=== PATIENT | female | born 1985 | race Caucasian/White ===

== ENCOUNTER 2022-11-22 16:00 | Outpatient (REF) | payer MEDICAID, SELFPAY ==
--- NOTE | 2022-11-22 11:00 | PAPFT_PTH ---
PATIENT: Lizabeth TRIPATHI LOC: [facility] U#:[id number] AGE/SX: 36/F ROOM: RE11/22/[address]: Velia Saul CNM : 1985 BED: DIS: 11/22/2022 SPEC #: [id number] RECD: 11/22/22 18:36 STATUS: MARTIN REQ #: [id number] JOSE RAFAEL: 11/22/22 11:[address]: Velia Saul DEPT: [facility] Cytology RECD BY: Tamiko Babb ENTERED: 11/22/22 18:36 SP TYPE: PAPFT OTHR DR: Unknown,Unknown Tissues: 1 - CX/ENDOCX FOR PAP SMEARS Procedures: PAP THIN PREP/UVM Screening Comments: [id number] (CHLAMYDIA/GC)
[2022-11-22 18:03] LABS: *AMPHETAMINES SCREEN URINE Negative (Negative); *BARBITURATES SCREEN URINE Negative (Negative); *BENZODIAZEPINES SCREEN URINE Negative (Negative); Cannabinoids THC Negative (Negative); Cocaine Screen,Urine Negative (Negative); METHADONE URINE SCREEN Negative (Negative); OPIATES URINE SCREEN Negative (Negative)
[2022-11-22 18:04] LABS: Tricyclic Antidepressants Negative (Negative)
[2022-11-23 12:58] LABS: Chlamydia Result Negative (Negative); GC Result Negative (Negative)
[2022-11-29 13:17] LABS: Buprenorphine Negative ng/mL (Cutoff: 5.0); Norbuprenorphine Negative ng/mL (Cutoff: 2.5)
== END 2022-11-22 16:01 | disposition home or self-care (01) ==
LOC: LBN 16:00
PROVIDERS: Visit Provider Advanced Practice Midwife
DX: Z34.91 Encounter for supervision of normal pregnancy, unspecified, first trimester (principal)
CPT/HCPCS: 80307; 80348; 87491; 87591; 88142; 87086

== ENCOUNTER 2022-11-22 20:25 | Outpatient (CLI) | payer MEDICAID, SELFPAY ==
[2022-11-22 15:55] LABS: Abs Immature Grans 0.07 10^3/uL (0.0-0.06); Absolute Basophil Count 0.05 10^3/uL (0.0-0.2); Absolute Eosinophil Count 0.06 10^3/uL (0.0-0.7); Absolute Lymphocyte Count 1.57 10^3/uL (1.2-3.4); Absolute Neutrophil Count 9.73 10^3/uL (1.2-6.7); Basophils % 0.4; Eosinophils % 0.5; HCT 38.3 % (36.0-46.0); HGB 12.8 g/dL (11.2-15.7); Immature Grans % 0.6; MCH 30.1 pg (27.0-33.0); MCHC 33.4 % (32.0-36.0); MCV 90 fL (80-95); MPV 10.5 fL (8.0-11.0); Monocytes % 4.7; Neutrophils % 80.8; Platelet Count 326 10^3/uL (130-400); RBC 4.25 10^6/uL (3.93-5.22); RDW 12.5 % (11.7-14.6); WBC 12.04 10^3/uL (4.4-10.8)
[2022-11-22 16:01] LABS: Absolute Monocyte Count 0.57 10^3/uL (0.1-0.8)
[2022-11-25 10:07] LABS: HIV-1/2 Ag & Ab Screen Negative (Negative)
[2022-11-26 11:22] LABS: Varicella IgG Antibody Positive (See Note)
[2022-11-26 11:25] LABS: Rubella IgG Ab (UVM) Positive (See Note)
[2022-11-26 15:17] LABS: Syphilis IgG w/Reflex Nonreactive (Nonreactive)
[2022-11-26 15:33] LABS: Hepatitis C Ab w Rflx HCV PCR Negative (Negative)
[2022-11-26 16:40] LABS: Hepatitis B Surface Ag Negative (Negative)
== END 2022-11-22 20:26 | disposition home or self-care (01) ==
LOC: LBO 20:25
PROVIDERS: Visit Provider Advanced Practice Midwife
DX: Z34.91 Encounter for supervision of normal pregnancy, unspecified, first trimester
CPT/HCPCS: 36415; 86787; 86803; 86850; 86900; 86901; 87340; 87389; 85025; 86762; 86780

== ENCOUNTER → 2022-12-26 00:26 | Outpatient (CLI) | payer MEDICAID, SELFPAY ==
--- NOTE | 2022-12-26 08:00 | DI.US_ITS ---
Exam(s) US OB 2-3 TRIMESTER EXAM: US OB 2-3 TRIMESTER CLINICAL HISTORY: anatomy survey @ 19 wks, Z34.91. TECHNIQUE: Transabdominal obstetrical ultrasound performed. COMPARISON: US POCUS EXAM from 11/06/2022 FINDINGS: Number of fetuses: One. position: Variable Placental grade: 1 Placental location: Posterior. No evidence of previa. BIOMETRIC DATA: BPD: 44mm = 19+ 1 weeks HC: 165mm = 19+ 1 weeks AC: 139mm = 19+ 2 weeks FL: 28mm = 18+ 5 weeks Cisterna Magna: 2.9 mm Cerebellum: 1.9 cm EFW: 271 grms 57% Composite Age: 19+ 1 weeks EDC by US: 21 May 2023 Heart Rate: 151BPM Amniotic fluid : Amount of fluid is within normal limits. ANATOMICAL SURVEY: Four-chambered heart: Unremarkable. LVOT: Unremarkable. RVOT: Unremarkable. Left-sided stomach: Unremarkable. urinary bladder: Unremarkable. Bilateral kidneys: Unremarkable. Three-vessel cord: Unremarkable. Cord insertion: Unremarkable. Posterior fossa:Unremarkable. ventricles: Unremarkable. nose: Unremarkable. lips: Unremarkable. palate: Unremarkable. spine: Unremarkable. Two arms and two legs: Unremarkable. IMPRESSION: 1. Single live intrauterine gestation with gestational age 19+ 1 weeks. 2. Normal anatomic survey. DATA REPOSITORY:
== END ==
PROVIDERS: Visit Provider Advanced Practice Midwife
DX: Z34.91 Encounter for supervision of normal pregnancy, unspecified, first trimester (principal)
CPT/HCPCS: 76805

== ENCOUNTER 2023-01-25 16:26 | Outpatient (REF) | payer MEDICAID, SELFPAY ==
[2023-01-25 17:13] LABS: COMMENT (LAB VIEW ONLY) 31.32 mg/dL; PROTEIN < 6.0 mg/dL
== END 2023-01-25 16:27 | disposition home or self-care (01) ==
LOC: LBN 16:26
PROVIDERS: Visit Provider Advanced Practice Midwife
DX: O09.512 Supervision of elderly primigravida, second trimester (principal); Z3A.23 23 weeks gestation of pregnancy
CPT/HCPCS: 82565; 84156

== ENCOUNTER 2023-02-22 16:10 | Outpatient (CLI) | payer MEDICAID, SELFPAY ==
[2023-02-22 16:14] VITALS: BP 130/70; PULSE 89; TEMP 36.8
[2023-02-22 16:21] VITALS: BP 137/77; PULSE 88; TEMP 36.8
[2023-02-22 16:47] LABS: COMMENT (LAB VIEW ONLY) 23.07 mg/dL; PROTEIN < 6.0 mg/dL
[2023-02-22 17:03] VITALS: BP 130/70; PULSE 89
== END 2023-02-22 17:09 ==
LOC: BCD 16:10 → OBS 16:11
PROVIDERS: Visit Provider Advanced Practice Midwife
DX: O13.3 Gestational [pregnancy-induced] hypertension without significant proteinuria, third trimester (principal); Z3A.27 27 weeks gestation of pregnancy
CPT/HCPCS: 59025; 82565; 84156

== ENCOUNTER 2023-02-22 16:33 | Outpatient (CLI) | payer MEDICAID, SELFPAY ==
[2023-02-22 15:10] LABS: HCT 37.5 % (36.0-46.0); HGB 12.4 g/dL (11.2-15.7); MCH 30.2 pg (27.0-33.0); MCHC 33.1 % (32.0-36.0); MCV 91 fL (80-95); MPV 9.6 fL (8.0-11.0); Platelet Count 307 10^3/uL (130-400); RBC 4.11 10^6/uL (3.93-5.22); RDW 12.6 % (11.7-14.6); RDW-SD 41.4 fL; WBC 11.37 10^3/uL (4.4-10.8)
[2023-02-22 15:53] LABS: ALT 23 U/L (14-59); AST 14 U/L (15-37); Albumin 2.7 g/dL (3.4-5.0); Alkaline Phosphatase 62 U/L (46-116); BUN 6 mg/dL (7-18); Bilirubin, Total 0.2 mg/dL (0.2-1.0); CREATININE 0.5 mg/dL (0.55-1.02); Calcium 9.3 mg/dL (8.5-10.1); Chloride 105 mmol/L (98-107); Estimated GFR 123.81 (mL/min/1.73m2); Glucose 82 mg/dL (74-106); Sodium 137 mmol/L (136-145)
--- NOTE | 2023-02-23 07:21 | W.OBNST ---
Date of service: 02/23/23 Time of Service: 07:22 NST Evaluation Reason for NST Reasons for Nonstress Test: GESTATIONAL HYPERTENSION Gestational Age Gestational Age in Weeks and Days: 27 Weeks and 3Days Test and Monitor Explained Test/Monitor Explained: Test Explained, Monitor Explained and Patient Verbalized Understanding Vital Signs Blood Pressure: 130/70 Urine Results Urine Protein: Negative Urine Ketones: Negative Urine Glucose: Negative Urine Blood: Negative NST Information Date on Monitor: 02/22/23 Time on Monitor: 16:00 Date off Monitor: 02/22/23 Time off Monitor: 17:00 Total Time on Monitor: 60 NST Interventions: PO Hydration Contraction Frequency: 0 NST Evaluation Patient States Movement: Present FHR Baseline: 150 Variability: Moderate 6-25 bpm Accelerations: 10x10 Decelerations: None NST Results: Reactive Note Ultrasound Done: N/A. NST Note Note: Normotensive in BC x2 Labs nml pt asymptomatic Reviewed with Dr. Dominguez, pt to discharge to home BP check in 1 week NST Reviewed and Verified by: Velia Saul
[2023-02-23 07:25] VITALS: BP 130/70
== END 2023-02-22 16:34 | disposition home or self-care (01) ==
LOC: LBO 16:34
PROVIDERS: Advanced Practice Midwife; Visit Provider Advanced Practice Midwife
DX: Z34.92 Encounter for supervision of normal pregnancy, unspecified, second trimester (principal)
CPT/HCPCS: 36415; 80053; 85027

== ENCOUNTER 2023-03-08 14:39 | Outpatient (CLI) | payer MEDICAID, SELFPAY ==
[2023-03-08 14:47] VITALS: BP 138/92; PULSE 85; TEMP 36.9
[2023-03-08 14:52] VITALS: BP 138/92; PULSE 85
[2023-03-08 15:05] LABS: HCT 38.7 % (36.0-46.0); HGB 13.2 g/dL (11.2-15.7); MCH 30.5 pg (27.0-33.0); MCHC 34.1 % (32.0-36.0); MCV 89 fL (80-95); MPV 9.8 fL (8.0-11.0); Platelet Count 284 10^3/uL (130-400); RBC 4.33 10^6/uL (3.93-5.22); RDW 12.2 % (11.7-14.6); RDW-SD 40.3 fL; WBC 10.83 10^3/uL (4.4-10.8)
[2023-03-08 15:12] VITALS: BP 129/80; PULSE 80
[2023-03-08 15:20] LABS: ALT 18 U/L (14-59); AST 16 U/L (15-37); Albumin 2.7 g/dL (3.4-5.0); Alkaline Phosphatase 68 U/L (46-116); BUN 9 mg/dL (7-18); Bilirubin, Total 0.3 mg/dL (0.2-1.0); CREATININE 0.5 mg/dL (0.55-1.02); Calcium 9.5 mg/dL (8.5-10.1); Chloride 104 mmol/L (98-107); Estimated GFR 123.81 (mL/min/1.73m2); Glucose 80 mg/dL (74-106); Potassium 3.7 mmol/L (3.5-5.1); Sodium 134 mmol/L (136-145); Total Protein 7.3 g/dL (6.4-8.2); Uric Acid 3.5 mg/dL (2.6-6.0)
[2023-03-08 15:29] VITALS: BP 135/76; PULSE 76
[2023-03-08 15:31] LABS: PROTEIN < 6.0 mg/dL
[2023-03-08 16:56] VITALS: BP 138/92; PULSE 85; TEMP 36.9
--- NOTE | 2023-03-08 16:56 | W.OBNST ---
Date of service: 03/08/23 Time of Service: 16:56 NST Evaluation Reason for NST Reasons for Nonstress Test: GESTATIONAL HYPERTENSION Gestational Age Gestational Age in Weeks and Days: 29 Weeks and 3Days Test and Monitor Explained Test/Monitor Explained: Test Explained and Monitor Explained Vital Signs Blood Pressure: 138/92 Pulse: 85 Temperature: 98.4 F Urine Results Urine Protein: Negative NST Information Date on Monitor: 03/08/23 Time on Monitor: 14:47 Date off Monitor: 03/08/23 Time off Monitor: 15:37 Total Time on Monitor: 50 NST Interventions: PO Hydration Contraction Frequency: 0 NST Evaluation Patient States Movement: Present FHR Baseline: 150 Variability: Moderate 6-25 bpm Accelerations: 15x15 Decelerations: None NST Results: Reactive Note Ultrasound Done: N/A. NST Note NST Reviewed and Verified by: Velia Saul
[2023-03-09 16:27] VITALS: BP 120/71; PULSE 96
[2023-03-11 15:24] VITALS: BP 117/78; PULSE 78
[2023-03-12 22:44] VITALS: BP 125/70; PULSE 93
== END 2023-03-08 15:45 | disposition home or self-care (01) ==
LOC: BCD 14:40 → OBS 14:44
PROVIDERS: Visit Provider Advanced Practice Midwife
DX: O13.3 Gestational [pregnancy-induced] hypertension without significant proteinuria, third trimester (principal); Z3A.29 29 weeks gestation of pregnancy
CPT/HCPCS: 80053; 85027; 59025; 82565; 84156; 84550

== ENCOUNTER 2023-03-15 04:47 | Outpatient (CLI) | payer MEDICAID, SELFPAY ==
[2023-03-15 15:42] VITALS: BP 128/77; PULSE 75; TEMP 36.8
[2023-03-15 15:46] VITALS: BP 128/77; PULSE 75
[2023-03-15 16:20] VITALS: BP 128/77; PULSE 75; TEMP 36.8
--- NOTE | 2023-03-15 16:42 | W.OBNST ---
Date of service: 03/15/23 Time of Service: 16:30 NST Evaluation Reason for NST Reasons for Nonstress Test: CHRONIC HYPERTENSION Gestational Age Gestational Age in Weeks and Days: 30 Weeks and 1Days Test and Monitor Explained Test/Monitor Explained: Test Explained Vital Signs Blood Pressure: 128/77 Pulse: 75 Temperature: 98.2 F Urine Results Urine Protein: Negative Urine Ketones: Negative Urine Glucose: Negative Urine Blood: Negative NST Information Date on Monitor: 03/15/23 Time on Monitor: 15:40 Date off Monitor: 03/15/23 Time off Monitor: 16:11 Total Time on Monitor: 31 NST Interventions: None NST Evaluation Patient States Movement: Present FHR Baseline: 145 Variability: Moderate 6-25 bpm Accelerations: 10x10 Decelerations: None NST Results: Reactive Note Ultrasound Done: N/A. NST Note Note: NST is reactive and reassuring. will return in 1 week. IDANIA NST Reviewed and Verified by: Olamide Corona
[2023-03-15 16:43] VITALS: BP 128/77; PULSE 75; TEMP 36.8
== END 2023-03-15 16:38 ==
LOC: BCD 04:48 → OBS 15:07
PROVIDERS: Visit Provider Advanced Practice Midwife
DX: O13.3 Gestational [pregnancy-induced] hypertension without significant proteinuria, third trimester (principal); Z3A.30 30 weeks gestation of pregnancy
CPT/HCPCS: 59025

== ENCOUNTER 2023-03-22 08:44 | Outpatient (CLI) | payer MEDICAID, SELFPAY ==
[2023-03-22 15:10] VITALS: BP 114/67; PULSE 74; TEMP 36.6
[2023-03-22 15:21] VITALS: BP 114/67; PULSE 74
--- NOTE | 2023-03-22 19:20 | W.OBNST ---
Date of service: 03/22/23 Time of Service: 16:00 NST Evaluation Reason for NST Reasons for Nonstress Test: CHRONIC HYPERTENSION Gestational Age Gestational Age in Weeks and Days: 31 Weeks and 1Days Test and Monitor Explained Test/Monitor Explained: Test Explained Vital Signs Blood Pressure: 114/67 Pulse: 74 Temperature: 97.9 F Urine Results Urine Protein: Negative Urine Ketones: Negative Urine Glucose: Negative Urine Blood: Negative NST Information Date on Monitor: 03/22/23 Time on Monitor: 15:09 Date off Monitor: 03/22/23 Time off Monitor: 15:59 Total Time on Monitor: 50 NST Interventions: PO Hydration NST Evaluation Patient States Movement: Present FHR Baseline: 145 Variability: Moderate 6-25 bpm Accelerations: 15x15 Decelerations: None NST Results: Reactive Note Ultrasound Done: N/A. NST Note NST Reviewed and Verified by: Velia Saul
[2023-03-22 19:21] VITALS: BP 114/67; PULSE 74; TEMP 36.6
== END 2023-03-22 16:00 | disposition home or self-care (01) ==
LOC: BCD 08:44 → OBS 15:05
PROVIDERS: Visit Provider Advanced Practice Midwife
DX: O13.3 Gestational [pregnancy-induced] hypertension without significant proteinuria, third trimester (principal); Z3A.31 31 weeks gestation of pregnancy
CPT/HCPCS: 59025

== ENCOUNTER 2023-03-29 05:47 | Outpatient (CLI) | payer MEDICAID, SELFPAY ==
[2023-03-29 15:32] VITALS: BP 137/82; PULSE 82
[2023-03-29 15:33] VITALS: BP 137/82; PULSE 82; RESP 16; TEMP 36.8
[2023-03-29 16:02] VITALS: BP 137/82; PULSE 82
--- NOTE | 2023-03-29 17:17 | W.OBNST ---
Date of service: 03/29/23 Time of Service: 17:18 NST Evaluation Reason for NST Reasons for Nonstress Test: CHRONIC HYPERTENSION Gestational Age Gestational Age in Weeks and Days: 32 Weeks and 1Days Test and Monitor Explained Test/Monitor Explained: Test Explained, Monitor Explained and Patient Verbalized Understanding Vital Signs Blood Pressure: 137/82 Pulse: 82 NST Information Date on Monitor: 03/29/23 Time on Monitor: 15:31 Date off Monitor: 03/29/23 Time off Monitor: 16:02 Total Time on Monitor: 31 NST Interventions: None NST Evaluation Patient States Movement: Present FHR Baseline: 140 Variability: Moderate 6-25 bpm Accelerations: 15x15 Decelerations: None NST Results: Reactive Note Ultrasound Done: N/A. NST Note Note: Weekly NST due to chronic hypertension. reactive NST, Return to center in 1 week. NST Reviewed and Verified by: Olamide Simons
[2023-03-29 17:19] VITALS: BP 137/82; PULSE 82
== END 2023-03-29 16:10 | disposition home or self-care (01) ==
LOC: BCD 05:52 → OBS 15:26
PROVIDERS: Visit Provider Advanced Practice Midwife
DX: O13.3 Gestational [pregnancy-induced] hypertension without significant proteinuria, third trimester (principal); Z3A.32 32 weeks gestation of pregnancy
CPT/HCPCS: 59025

== ENCOUNTER → 2023-04-05 00:35 | Outpatient (CLI) | payer MEDICAID, SELFPAY ==
--- NOTE | 2023-04-05 08:30 | DI.US_ITS ---
Exam(s) US OB BRUNA WEIGHT EXAM: US OB BRUNA WEIGHT CLINICAL HISTORY: chronic hypertension affecting , O10.919. TECHNIQUE: Transabdominal obstetrical ultrasound was performed. COMPARISON: US US OB 2-3 TRIMESTER from 12/26/2022 FINDINGS: There is a single viable intrauterine gestation with cardiac activity identified-151 bpm The fetus is presently in cephalic position . Amniotic fluid: There is a normal amount of amniotic fluid with an BRUNA of 18.40cm. Placental location: The placenta is anterior grade 1,with no evidence of placenta previa. Dating parameters place this at approximately 33 weeks and 2 days gestational age, implying TEENA of 05/22/2023. BPD measures 33 weeks and 0 days HC measures 34 weeks and 3 days AC measures 32 weeks and 3 days FL measures 33 weeks and 1 day Estimated weight is 2085 gm-4 pounds, 10 ounces Fetus is at the 35th percentile on the Hadlock scale. IMPRESSION:: Viable 3rd trimester gestation, as described above. DATA REPOSITORY:
== END ==
PROVIDERS: Visit Provider Advanced Practice Midwife
DX: O10.913 Unspecified pre-existing hypertension complicating pregnancy, third trimester (principal); Z3A.33 33 weeks gestation of pregnancy
CPT/HCPCS: 76816

== ENCOUNTER 2023-04-05 07:12 | Outpatient (CLI) | payer MEDICAID, SELFPAY ==
[2023-04-05 15:28] VITALS: BP 135/78; PULSE 78; TEMP 36.7
[2023-04-05 15:29] VITALS: BP 135/78; PULSE 78
--- NOTE | 2023-04-05 16:14 | W.OBNST ---
Date of service: 04/05/23 Time of Service: 16:00 NST Evaluation Reason for NST Reasons for Nonstress Test: GESTATIONAL HYPERTENSION Gestational Age Gestational Age in Weeks and Days: 33 Weeks and 2Days Test and Monitor Explained Test/Monitor Explained: Test Explained, Monitor Explained and Patient Verbalized Understanding Vital Signs Blood Pressure: 135/78 Pulse: 78 Temperature: 98.1 F NST Information Date on Monitor: 04/05/23 Time on Monitor: 15:29 Date off Monitor: 04/05/23 Time off Monitor: 16:00 Total Time on Monitor: 31 NST Interventions: None NST Evaluation Patient States Movement: Present FHR Baseline: 130 Variability: Moderate 6-25 bpm Accelerations: 15x15 Decelerations: None NST Results: Reactive Note Ultrasound Done: N/A. NST Note Note: NST is reactive and reassuring. Return in 1 week for NST and 2 weeks for visit in office. NST Reviewed and Verified by: Olamide Corona
[2023-04-05 16:15] VITALS: BP 135/78; PULSE 78; TEMP 36.7
[2023-04-05 20:02] VITALS: BP 142/74; PULSE 91
== END 2023-04-05 16:08 ==
LOC: BCD 07:13 → OBS 15:13
PROVIDERS: Visit Provider Advanced Practice Midwife
DX: O10.913 Unspecified pre-existing hypertension complicating pregnancy, third trimester (principal); Z3A.33 33 weeks gestation of pregnancy
CPT/HCPCS: 59025

== ENCOUNTER 2023-04-12 05:27 | Outpatient (CLI) | payer MEDICAID, SELFPAY ==
[2023-04-12 15:35] VITALS: BP 144/79; PULSE 77; TEMP 36.7
[2023-04-12 16:33] VITALS: BP 144/79; PULSE 77
--- NOTE | 2023-04-13 09:27 | W.OBNST ---
Date of service: 04/12/23 Time of Service: 16:00 NST Evaluation Reason for NST Reasons for Nonstress Test: CHRONIC HYPERTENSION Gestational Age Gestational Age in Weeks and Days: 34 Weeks and 1Days Test and Monitor Explained Test/Monitor Explained: Test Explained, Monitor Explained and Patient Verbalized Understanding Vital Signs Blood Pressure: 144/79 Pulse: 77 Temperature: 98.1 F Urine Results Urine Protein: Negative Urine Ketones: Negative Urine Glucose: Negative Urine Blood: Negative NST Information Date on Monitor: 04/12/23 Time on Monitor: 15:20 Date off Monitor: 04/12/23 Time off Monitor: 16:30 Total Time on Monitor: 70 NST Interventions: PO Hydration Contraction Frequency: 0 NST Evaluation Patient States Movement: Present FHR Baseline: 135 Variability: Moderate 6-25 bpm Accelerations: 15x15 Decelerations: None NST Results: Reactive Note Ultrasound Done: N/A. NST Note Note: Continue labetalol 100 mg BID Discussed increasing dose if BP rises Weekly NST, will return next Saturday Schedule ultrasound for interval growth in early April NST Reviewed and Verified by: Velia Saul
[2023-04-13 09:29] VITALS: BP 144/79; PULSE 77; TEMP 36.7
== END 2023-04-12 16:35 ==
LOC: BCD 05:29 → OBS 15:15
PROVIDERS: Visit Provider Advanced Practice Midwife
DX: O13.3 Gestational [pregnancy-induced] hypertension without significant proteinuria, third trimester (principal); Z3A.34 34 weeks gestation of pregnancy
CPT/HCPCS: 59025

== ENCOUNTER 2023-04-19 07:37 | Outpatient (CLI) | payer MEDICAID, SELFPAY ==
[2023-04-19 15:24] VITALS: BP 128/75; PULSE 80; TEMP 36.9
--- NOTE | 2023-04-19 16:07 | W.OBNST ---
Date of service: 04/19/23 Time of Service: 16:08 NST Evaluation Reason for NST Reasons for Nonstress Test: CHRONIC HYPERTENSION Gestational Age Gestational Age in Weeks and Days: 35 Weeks and 1Days Test and Monitor Explained Test/Monitor Explained: Test Explained and Monitor Explained Vital Signs Blood Pressure: 128/75 Pulse: 80 Temperature: 98.4 F Urine Results Urine Protein: Negative Urine Ketones: Negative Urine Glucose: Negative Urine Blood: Negative NST Information Date on Monitor: 04/19/23 Time on Monitor: 15:24 Date off Monitor: 04/19/23 Time off Monitor: 15:59 Total Time on Monitor: 35 NST Interventions: PO Hydration NST Evaluation Patient States Movement: Present FHR Baseline: 140 Variability: Moderate 6-25 bpm Accelerations: 15x15 Decelerations: None NST Results: Reactive Note Ultrasound Done: N/A. NST Note Note: Lizabeth is here for weekly NST. Reactive NST. Return in 1 week for visit and NST. NST Reviewed and Verified by: Olamide Simons
[2023-04-19 16:09] VITALS: BP 128/75; PULSE 80; TEMP 36.9
== END 2023-04-19 16:01 | disposition home or self-care (01) ==
LOC: BCD 07:38 → OBS 15:18
PROVIDERS: Visit Provider Advanced Practice Midwife
DX: O10.913 Unspecified pre-existing hypertension complicating pregnancy, third trimester (principal); Z3A.35 35 weeks gestation of pregnancy
CPT/HCPCS: 59025

== ENCOUNTER 2023-04-26 09:03 | Outpatient (CLI) | payer MEDICAID, SELFPAY ==
[2023-04-26 16:23] VITALS: BP 130/85; PULSE 84
[2023-04-26 16:45] VITALS: BP 130/85; PULSE 84
--- NOTE | 2023-04-26 16:46 | W.OBNST ---
Date of service: 04/26/23 Time of Service: 16:05 NST Evaluation Reason for NST Reasons for Nonstress Test: GESTATIONAL HYPERTENSION Gestational Age Gestational Age in Weeks and Days: 35 Weeks and 1Days Test and Monitor Explained Test/Monitor Explained: Test Explained and Monitor Explained Vital Signs Blood Pressure: 130/85 Pulse: 84 Urine Results Urine Protein: Negative Urine Ketones: Positive Urine Glucose: Negative Urine Blood: Negative NST Information Time on Monitor: 15:10 Date off Monitor: 04/26/23 Time off Monitor: 16:05 NST Interventions: PO Hydration and Other NST Evaluation Patient States Movement: Present FHR Baseline: 140 Variability: Moderate 6-25 bpm Accelerations: 15x15 Decelerations: None NST Results: Reactive Note Ultrasound Done: N/A. NST Note Note: NST is reactive and reassuring. NST Reviewed and Verified by: Olamide Corona
[2023-04-26 16:49] VITALS: BP 130/85; PULSE 84
== END 2023-04-26 16:10 ==
LOC: BCD 09:05 → OBS 15:15
PROVIDERS: Visit Provider Advanced Practice Midwife
DX: O13.3 Gestational [pregnancy-induced] hypertension without significant proteinuria, third trimester (principal); Z3A.35 35 weeks gestation of pregnancy
CPT/HCPCS: 59025

== ENCOUNTER 2023-04-26 15:45 | Outpatient (REF) | payer MEDICAID, SELFPAY ==
--- NOTE | 2023-04-26 16:43 | W.OBNST ---
Date of service: 04/26/23 Time of Service: 16:20 NST Evaluation Gestational Age Gestational Age in Weeks and Days: 35 Weeks and 1Days Vital Signs Blood Pressure: 135/82 Urine Results Urine Protein: Negative Urine Ketones: Positive Urine Glucose: Negative Urine Blood: Negative
== END 2023-04-26 15:46 | disposition home or self-care (01) ==
LOC: LBN 15:45
PROVIDERS: Visit Provider Advanced Practice Midwife
DX: Z34.93 Encounter for supervision of normal pregnancy, unspecified, third trimester (principal); Z36.85 Encounter for antenatal screening for Streptococcus B; Z3A.36 36 weeks gestation of pregnancy
CPT/HCPCS: 87081

== ENCOUNTER → 2023-05-01 02:08 | Outpatient (CLI) | payer MEDICAID, SELFPAY ==
--- NOTE | 2023-05-01 08:15 | DI.US_ITS ---
Exam(s) US OB BRUNA WEIGHT EXAM: US OB BRUNA WEIGHT CLINICAL HISTORY: interval growth,chronic hypertension,O10.919. TECHNIQUE: Transabdominal obstetrical ultrasound performed. COMPARISON: US US OB 2-3 TRIMESTER from 12/26/2022 US US OB BRUNA WEIGHT from 04/05/2023 FINDINGS:: Number of fetuses: One. position: Vertex. Placental location: Fundal and anterior no evidence of previa. BIOMETRIC DATA: BPD: 89mm = 36+ 1 weeks HC: 327mm = 37+ 1 weeks AC: 331mm = 37+ 0 weeks FL: 72 mm = 36+ 6 weeks EFW: 3053 Gms = 56% Composite Age: 36+ 6 weeks TEENA: 23 May 2023 Heart Rate: 143BPM Amniotic fluid: Amount of fluid is visually within normal limits. IMPRESSION: size and weight are within the expected range. DATA REPOSITORY:
== END ==
PROVIDERS: Visit Provider Advanced Practice Midwife
DX: O10.919 Unspecified pre-existing hypertension complicating pregnancy, unspecified trimester (principal); Z3A.36 36 weeks gestation of pregnancy
CPT/HCPCS: 76816

== ENCOUNTER 2023-05-01 16:14 | Outpatient (CLI) | payer MEDICAID, SELFPAY ==
[2023-05-01 16:33] VITALS: BP 124/69; PULSE 89; TEMP 36.9
[2023-05-01 16:36] VITALS: BP 124/69; PULSE 89
--- NOTE | 2023-05-01 19:50 | W.OBNST ---
Date of service: 05/01/23 Time of Service: 19:50 NST Evaluation Reason for NST Reasons for Nonstress Test: GESTATIONAL HYPERTENSION Gestational Age Gestational Age in Weeks and Days: 36 Weeks and 6Days Test and Monitor Explained Test/Monitor Explained: Test Explained, Monitor Explained and Patient Verbalized Understanding Vital Signs Blood Pressure: 124/69 Pulse: 89 Temperature: 98.4 F Urine Results Urine Protein: Negative Urine Ketones: Negative Urine Glucose: Negative Urine Blood: Negative NST Information Date on Monitor: 05/01/23 Time on Monitor: 16:26 Date off Monitor: 05/01/23 Time off Monitor: 16:51 Total Time on Monitor: 25 NST Evaluation Patient States Movement: Present FHR Baseline: 145 Variability: Moderate 6-25 bpm Accelerations: 15x15 Decelerations: None NST Results: Reactive Note Ultrasound Done: N/A. NST Note Note: NST for hypertension. US today for growth and BRUNA was WNL. RTO 1 week for NST and visit NST Reviewed and Verified by: Olamide Simons
[2023-05-01 19:51] VITALS: BP 124/69; PULSE 89; TEMP 36.9
== END 2023-05-01 16:55 | disposition home or self-care (01) ==
LOC: BCD 16:18 → OBS 16:20
PROVIDERS: Visit Provider Advanced Practice Midwife
DX: O13.3 Gestational [pregnancy-induced] hypertension without significant proteinuria, third trimester (principal); Z3A.36 36 weeks gestation of pregnancy
CPT/HCPCS: 59025

== ENCOUNTER 2023-05-10 15:15 | Outpatient (CLI) | payer MEDICAID, SELFPAY ==
[2023-05-10 15:25] VITALS: BP 130/88; PULSE 88; TEMP 36.8
[2023-05-10 15:27] VITALS: BP 130/88; PULSE 88
[2023-05-10 15:50] VITALS: BP 132/85; PULSE 76
[2023-05-10 16:13] LABS: HCT 38.2 % (36.0-46.0); HGB 13.1 g/dL (11.2-15.7); MCH 30.5 pg (27.0-33.0); MCHC 34.3 % (32.0-36.0); MCV 89 fL (80-95); MPV 10.7 fL (8.0-11.0); Platelet Count 240 10^3/uL (130-400); RBC 4.29 10^6/uL (3.93-5.22); RDW 12.2 % (11.7-14.6); RDW-SD 39.8 fL; WBC 9.88 10^3/uL (4.4-10.8)
--- NOTE | 2023-05-10 16:20 | W.OBNST ---
Date of service: 05/10/23 Time of Service: 16:21 NST Evaluation Reason for NST Reasons for Nonstress Test: CHRONIC HYPERTENSION Gestational Age Gestational Age in Weeks and Days: 38 Weeks and 1Days Test and Monitor Explained Test/Monitor Explained: Test Explained and Monitor Explained Vital Signs Blood Pressure: 130/88 Pulse: 88 Temperature: 98.2 F Urine Results Urine Protein: Negative Urine Ketones: Negative Urine Glucose: Negative Urine Blood: Negative NST Information Date on Monitor: 05/10/23 Time on Monitor: 15:18 Date off Monitor: 05/10/23 Time off Monitor: 16:17 Total Time on Monitor: 59 NST Interventions: PO Hydration NST Evaluation Patient States Movement: Present FHR Baseline: 145 Variability: Moderate 6-25 bpm Accelerations: 15x15 Decelerations: None NST Results: Reactive Note Ultrasound Done: N/A. NST Note Note: BP recheck 132/85. preeclampsia labs drawn. RTO in 1 week for NST and visit. NST Reviewed and Verified by: Olamide Simons
[2023-05-10 16:22] VITALS: BP 130/88; PULSE 88; TEMP 36.8
[2023-05-10 16:28] LABS: ALT 30 U/L (14-59); AST 19 U/L (15-37); Albumin 2.4 g/dL (3.4-5.0); Alkaline Phosphatase 117 U/L (46-116); Anion Gap 9.5 mmol/L (3-11); BUN 6 mg/dL (7-18); Bilirubin, Total 0.3 mg/dL (0.2-1.0); CO2 18.5 mmol/L (21.0-32.0); CREATININE 0.6 mg/dL (0.55-1.02); Calcium 8.8 mg/dL (8.5-10.1); Chloride 104 mmol/L (98-107); Estimated GFR 118.49 (mL/min/1.73m2); Glucose 118 mg/dL (74-106); Potassium 3.5 mmol/L (3.5-5.1); Sodium 132 mmol/L (136-145); Total Protein 6.8 g/dL (6.4-8.2)
[2023-05-10 16:38] LABS: Uric Acid 4.6 mg/dL (2.6-6.0)
[2023-05-10 16:53] LABS: COMMENT (LAB VIEW ONLY) 72.88 mg/dL; PROTEIN 15.6 mg/dL; Prot/Crea Ur Ratio 0.21
== END 2023-05-10 16:25 | disposition home or self-care (01) ==
LOC: BCD 15:19 → OBS 15:22
PROVIDERS: Visit Provider Advanced Practice Midwife
DX: O10.013 Pre-existing essential hypertension complicating pregnancy, third trimester (principal); Z3A.38 38 weeks gestation of pregnancy
CPT/HCPCS: 80053; 85027; 59025; 82565; 84156; 84550

== ENCOUNTER 2023-05-17 08:29 | Outpatient (CLI) | payer MEDICAID, SELFPAY ==
[2023-05-17 15:19] VITALS: BP 145/86; PULSE 74; TEMP 36.8
[2023-05-17 15:30] VITALS: BP 145/86; PULSE 74
[2023-05-17 15:41] VITALS: BP 140/82; PULSE 65
--- NOTE | 2023-05-17 16:10 | W.OBNST ---
Date of service: 05/17/23 Time of Service: 16:10 NST Evaluation Reason for NST Reasons for Nonstress Test: CHRONIC HYPERTENSION Gestational Age Gestational Age in Weeks and Days: 39 Weeks and 1Days Test and Monitor Explained Test/Monitor Explained: Test Explained, Monitor Explained and Patient Verbalized Understanding Vital Signs Blood Pressure: 145/86 Pulse: 74 Temperature: 98.2 F Urine Results Urine Protein: Negative Urine Ketones: Negative Urine Glucose: Negative Urine Blood: Negative NST Information Date on Monitor: 05/17/23 Time on Monitor: 15:21 Date off Monitor: 05/17/23 Time off Monitor: 15:41 Total Time on Monitor: 20 NST Interventions: None Contraction Frequency: 0 NST Evaluation Patient States Movement: Present FHR Baseline: 130 Variability: Moderate 6-25 bpm Accelerations: 15x15 Decelerations: None NST Results: Reactive Note Ultrasound Done: N/A. NST Note Note: NST is reactive and reassuring. BP slightly elevated. Patient is taking labetalol. Declines induction today. She is hoping to get through the weekend. Agrees to come in Saturday for NST and membrane sweep and possible induction at that time. Lizabeth is aware of reasoning for induction of labor for patient on medication for BP in and has been counseled that it is recommended at 39 weeks gestation. Denies questions. Is aware of pre-eclampsia warning signs and signs of labor to notify CNM of. IDANIA NST Reviewed and Verified by: Olamide Corona
[2023-05-17 16:13] VITALS: BP 145/86; PULSE 74; TEMP 36.8
== END 2023-05-17 15:55 ==
LOC: BCD 08:30 → OBS 14:50
PROVIDERS: Visit Provider Advanced Practice Midwife
DX: O13.3 Gestational [pregnancy-induced] hypertension without significant proteinuria, third trimester (principal); Z3A.39 39 weeks gestation of pregnancy
CPT/HCPCS: 59025

== ENCOUNTER 2023-05-21 11:04 | Inpatient (IN) | payer MEDICAID, SELFPAY ==
[2023-05-21] VITALS (156 sets, daily range): BP systolic 135–138; BP diastolic 79–87; PULSE 0–116; RESP 16; TEMP 36.7–36.9
[2023-05-21 11:35] LABS: HCT 36.5 % (36.0-46.0); HGB 12.5 g/dL (11.2-15.7); MCH 30.5 pg (27.0-33.0); MCHC 34.2 % (32.0-36.0); MCV 89 fL (80-95); MPV 10.8 fL (8.0-11.0); Platelet Count 238 10^3/uL (130-400); RDW 12.2 % (11.7-14.6); RDW-SD 39.8 fL; WBC 10.73 10^3/uL (4.4-10.8)
--- NOTE | 2023-05-21 12:05 | HPE_ITS ---
Date of service: 05/21/23 Time of Service: 12:05 Assessment and Plan Assessment and plan (1) Encounter for induction of labor: Status: Acute Assessment and plan: Admit to the Center. Will start misoprostol PO per protocol and anticipate . Comfort measures discussed. Desires to use the tub when needed. IOL discussed with MD friction saw operator, Cathy Dominguez MD (2) Chronic hypertension affecting : Status: Acute Assessment and plan: will continue to monitor BP. Will continue labetalol 100 mg PO BID OB-HPI Labor/Delivery History of Present Illness Reason for Visit: NST Chief Complaint: Scheduled Induction of Labor Indication for Induction: Chronic Hypertension. TEENA Calculator Estimated Delivery Date Method Current WG Current Estimate 05/23/23 Ultrasound #1 39w 5d Other Estimates 05/30/23 LMP (Uncertain) 38w 5d Comments: Lizabeth is here for IOL due to chronic hypertension History of Present Expected Delivery Route/Plan - CNM/ for cHTN medication management FOB/ - Donna Jimenez (first child) / GBS neg Desires tub room for labor Specific Issues/Plan 1. AMA & Nullip, advised to begin low dose ASA 2. Declines all genetic screening tests after AMA counseling 3. Declines level 2 ultrasound/MFM consult at [facility], prefers scan @ [facility] 4. Dental problems (bleeding gums). Had teeth cleaning @ 21 wks. 5. Declines 28 wk 1 hr glucola, will do 2 wks of QID home testing instead: all nml 6. Isolated BP elevation noted @ 23 wks, prot/creat ratio 01/25 unable to calculate, CMP added to 28 wk lab 6a. At 27 wks labs nml, NST reactive, BP elevation noted in office, 137/77 in , recheck at next appt 6b. At 29 wks starting labetalol 100 mg PO BID, labs are nml 7. Chronic hypertension, labetalol 100 mg twice daily & close follow-up: Wkly visits w/NST. 7a. Growth ultrasound at 33 wks, EFW35% BRUNA 18.40 7b. Patient understands to anticipate labor induction after 39 weeks, before term 7c. Growth US 37 weeks - EFW 66%ile and BRUNA 11.8 cm. Assessment: History Reviewed & Current Informed Consent Informed Consent: Induction of Labor (induction methods discussed) PFSH All Active Problems (Updated 05/21/23 @ 12:08 by Olamide Simons CNM) Encounter for induction of labor (Acute) Family history of hypertension (Acute) Chronic hypertension affecting (Acute) Former smoker (Acute) Advanced maternal age (AMA) in (Acute) (Acute) Medical History (Updated 05/21/23 @ 12:08 by Olamide Simons CNM) Elevated BP without diagnosis of hypertension Social History (Updated 11/05/22 @ 14:59 by Kristen Ang NP) Smoking/Tobacco Use Status: Never Smoking risk assessment performed?: Yes Alcohol Intake: never Substance use type: does not use Housing: apartment Female Reproductive History Menstrual control method: none History History 1 Para 0 Hx # Term Pregnancies 0 Multiple births 0 Hx # Pregnancies 0 Ectopic pregnancies 0 AB induced 0 Hx Number of Living Children 0 AB spontaneous 0 Meds Allergies and Home Medications Allergies Allergy/AdvReac Type Severity Reaction Status Date / Time No Known Allergies Allergy Unverified 05/17/23 16:35 Home Medications Medication Instructions Recorded Confirmed Type vits no.126-ferrous fum tab PO DAILY 11/05/22 05/17/23 History 28 mg iron-folic acid 800 mcg tablet (Classic ) aspirin 81 mg tablet,delayed 81 mg PO DAILY #90 tabs 11/22/22 05/17/23 Rx release alcohol swabs 1 pad topical QID #100 ea 01/25/23 05/17/23 Rx blood sugar diagnostic (FreeStyle #50 ea 01/25/23 05/17/23 Rx Lite Strips) blood-glucose meter (FreeStyle #1 01/25/23 05/17/23 Rx Lite Meter kit) lancets 28 gauge (FreeStyle #100 ea 01/25/23 05/17/23 Rx Lancets) labetalol 100 mg tablet 100 mg PO BID #60 tabs 03/08/23 05/17/23 Rx Exam Physical Exam Vital signs: Temp Pulse Resp BP 98.1 F 83 16 135/87 05/21/23 11:10 05/21/23 11:10 05/21/23 11:10 05/21/23 11:10 Vital Signs Reviewed: Yes Constitutional Constitutional: no acute distress Detailed Labor and Delivery Exam Dilation: 0 Effacement (%): 0 station: -3 Cervix position: mid Consistency: soft Marvin Score: Cervical Points Exam 0 1 2 3 Dilation Closed 1-2cm 3-4 cm 5-6cm Effacement 0-30% 40-50% 60-70% 80% Consistency Firm Medium Soft Station -3 -2 -1,0 +1,+2 Position Posterior Mid Anterior MARVIN Score(Cervical Ripeness Score): 3 Amniotic Membrane Status: Intact Monitor Mode: External Contraction Frequency(min): none Contraction Intensity: Mild Fetus A Heart Rate Baseline: 140 Monitor Accelerations: 15 X 15 Monitor Decelerations: None Variability: Moderate (6-25 BPM) Presentation: Vertex Categories: Category I Chest/Brest/Axilla Exam Chest Exam: Normal Respiratory Exam Respiratory Exam: Normal Cardiovascular Exam Cardiovascular Exam: Normal Abdominal Exam Abdominal Exam: Normal Extremities Exam Extremities Exam: Normal Back/Spine/Pelvis Exam Pelvis Adequate: Yes Skin Exam Skin Exam: Normal Detailed Skin Exam Skin: Present intact; Absent rash Psychiatric Exam Psychiatric Exam: Normal Risk Assessment Risk for Shoulder Dystocia Historical/Initial OB: NEGATIVE FOR: Pelvic Abnormality, Pre- BMI>30, Previous Shoulder Dystocia or Previous Macrosomia 36 Weeks: NEGATIVE FOR: Current Gestational DM, EFW>4500gms or Maternal Weight Gain>40lbs 40 Weeks: NEGATIVE FOR: EFW> 4500 gms, Maternal Weight Gain >40lb or Post Dates Delivery Plan @ 36wks: IOL in 39th week Risk for Pre-Eclampsia Date Initiated/Initials: @ 14 wks, to begin low dose ASA. JK Yes, if one or more: NEGATIVE FOR: Hx Pre-E/Gest HTN, Chronic HTN, Multiple Gestation, Pre-gestational DM, Renal Disease, Systemic Lupus or APA Syndrome Yes, if 2 or more: POSITIVE FOR: Nulliparity and Age>= 35 yrs; NEGATIVE FOR: >10yr btwn pregnancies, BMI>30, ethinicty, Mother/Sister w/ Pre-E or Previous IUGR Risk for Post- Hemorrhage Initial: NEGATIVE FOR: Multiple Gestation, Previous PPH, Known Clotting Deficiency, Grand Multiparity or Anticoagulation 36 Weeks: NEGATIVE FOR: Anemia, hgb<10, Low platelets(thrombocytopenia), Gestational HTN or Pre-E, Polyhydraminios or EFW>4500gms 40 Weeks: POSITIVE FOR: Gestation HTN or Pre-E; NEGATIVE FOR: Anemia, hgb<10, Low platelets (thrombocytopenia), Polyhydraminios or EFW>4500gms At Risk?: Yes Risks Reviewed Risks Reviewed Upon Admission: Yes
[2023-05-21] MEDS: miSOPROStol 25 MCG TAB 50 MCG PO ×3 (12:44→20:47)
[2023-05-21] MEDS: Labetalol 100 MG TAB PO (20:08)
[2023-05-21 20:38] LABS: COMMENT (LAB VIEW ONLY) 34.93 mg/dL; PROTEIN 6.2 mg/dL; Prot/Crea Ur Ratio 0.17
[2023-05-22] VITALS (291 sets, daily range): BP systolic 118–155; BP diastolic 57–83; PULSE 0–112; RESP 16; TEMP 36.8–37.2
[2023-05-22] MEDS: miSOPROStol 50 MCG TAB ×2 (00:54→04:47)
[2023-05-22 07:03] LABS: HCT 37.8 % (36.0-46.0); HGB 12.7 g/dL (11.2-15.7); MCH 30.5 pg (27.0-33.0); MCHC 33.6 % (32.0-36.0); MCV 91 fL (80-95); MPV 10.7 fL (8.0-11.0); Platelet Count 228 10^3/uL (130-400); RBC 4.16 10^6/uL (3.93-5.22); RDW 12.3 % (11.7-14.6); WBC 9.06 10^3/uL (4.4-10.8)
[2023-05-22] MEDS: Labetalol 100 MG TAB PO ×2 (08:42→19:38)
[2023-05-22] MEDS: miSOPROStol 50 MCG TAB PO (11:01)
--- NOTE | 2023-05-22 11:40 | W.PM.OBNL1 ---
Date of service: 05/22/23 Time of Service: 10:30 Informed Consent Informed Consent: Induction of Labor (induction methods discussed) Pelvic Exam Dilation: 0.5 Effacement (%): 25 station: -2 Cervix Position: posterior Consistency: soft Vaginal Exam Presentation: Cephalic Contractions Monitor Mode: External Contraction Frequency(min): every 2-4 Contraction Duration(sec): 40-50 Intensity: Mild Fetus A Monitor: External (US) Heart Rate Baseline: 140 Presentation: Cephalic Variability: Moderate (6-25 BPM) Categories: Category I FHR Rhythm: Regular Accelerations: 15 X 15 Decelerations: None Amniotic Membrane Status: Intact Assessment and Plan Assessment and plan (1) Encounter for induction of labor: Status: Acute Assessment and plan: Discussed options for continued induction. I offered misoprostol administered with cervical ripening balloon or misoprostol alone. Lizabeth prefers misoprostol now and will consider cervical ripening balloon in 4 hours if no sign of active labor. (2) Family history of hypertension: Status: Acute Assessment and plan: Continue to assess BP Objective Temp Pulse Resp BP 98.9 F 93 H 16 143/76 H 05/22/23 00:15 05/22/23 11:39 05/22/23 00:15 05/22/23 08:38 Laboratory Results WBC 9.06 10^3/uL (4.4-10.8) 05/22/23 06:00 RBC 4.16 10^6/uL (3.93-5.22) 05/22/23 06:00 Hgb 12.7 g/dL (11.2-15.7) 05/22/23 06:00 Hct 37.8 % (36.0-46.0) 05/22/23 06:00 MCV 91 fL (80-95) 05/22/23 06:00 MCH 30.5 pg (27.0-33.0) 05/22/23 06:00 MCHC 33.6 % (32.0-36.0) 05/22/23 06:00 RDW 12.3 % (11.7-14.6) 05/22/23 06:00 Plt Count 228 10^3/uL (130-400) 05/22/23 06:00 MPV 10.7 fL (8.0-11.0) 05/22/23 06:00 Ur Random Creatinine 34.93 mg/dL 05/21/23 19:30 U Random Total Protein 6.2 mg/dL 05/21/23 19:30 U [place] Prot/Creat Ratio 0.17 05/21/23 19:30 Patient ABO/Rh O Positive 05/21/23 11:25 Antibody Screen NEGATIVE 05/21/23 11:25 Subjective Patient Reports: No new Complaints Interval history since last seen: Lizabeth slept well last night. She has received 5 doses of misoprostol. She began experiencing discomfort this morning but it has decreased. BP 143/76. Preeclampsia labs WNL. Results Hemoglobin/Hematocrit: Hgb 12.7 g/dL (11.2-15.7) 05/22/23 06:00 Hct 37.8 % (36.0-46.0) 05/22/23 06:00
--- NOTE | 2023-05-22 15:00 | PGE_ITS ---
Date of service: 05/22/23 Time of Service: 15:00 Informed Consent Informed Consent: Induction of Labor (induction methods discussed) Pelvic Exam Comments: cervical exam deferred Contractions Monitor Mode: External Contraction Frequency(min): 2-4 Contraction Duration(sec): 40-60 Intensity: Mild Fetus A Monitor: External (US) Heart Rate Baseline: 140 Presentation: Vertex Variability: Moderate (6-25 BPM) Categories: Category I Accelerations: 15 X 15 Decelerations: None Amniotic Membrane Status: Intact Assessment and Plan Assessment and plan (1) Encounter for induction of labor: Status: Acute Assessment and plan: Reviewed options of pitocin augmentation or cervical ripening balloon or both together. Lizabeth declines cervical ripening balloon. She would like to proceed with pitocin infusion at this time.Parmjit start pitocin per protocol for continued cervical ripening. Reassess after 8 hours of pitocin infusion or when appropria te. Objective Temp Pulse Resp BP 98.9 F 77 16 139/80 05/22/23 00:15 05/22/23 13:11 05/22/23 00:15 05/22/23 11:43 Laboratory Results WBC 9.06 10^3/uL (4.4-10.8) 05/22/23 06:00 RBC 4.16 10^6/uL (3.93-5.22) 05/22/23 06:00 Hgb 12.7 g/dL (11.2-15.7) 05/22/23 06:00 Hct 37.8 % (36.0-46.0) 05/22/23 06:00 MCV 91 fL (80-95) 05/22/23 06:00 MCH 30.5 pg (27.0-33.0) 05/22/23 06:00 MCHC 33.6 % (32.0-36.0) 05/22/23 06:00 RDW 12.3 % (11.7-14.6) 05/22/23 06:00 Plt Count 228 10^3/uL (130-400) 05/22/23 06:00 MPV 10.7 fL (8.0-11.0) 05/22/23 06:00 Ur Random Creatinine 34.93 mg/dL 05/21/23 19:30 U Random Total Protein 6.2 mg/dL 05/21/23 19:30 U [place] Prot/Creat Ratio 0.17 05/21/23 19:30 Patient ABO/Rh O Positive 05/21/23 11:25 Antibody Screen NEGATIVE 05/21/23 11:25 Subjective Patient Reports: No new Complaints Interval history since last seen: resting comfortably Results Hemoglobin/Hematocrit: Hgb 12.7 g/dL (11.2-15.7) 05/22/23 06:00 Hct 37.8 % (36.0-46.0) 05/22/23 06:00
[2023-05-22 15:39] LABS: ALT 34 U/L (14-59); AST 24 U/L (15-37); Albumin 2.6 g/dL (3.4-5.0); Alkaline Phosphatase 139 U/L (46-116); Anion Gap 11.4 mmol/L (3-11); BUN 6 mg/dL (7-18); Bilirubin, Total 0.2 mg/dL (0.2-1.0); CO2 21.6 mmol/L (21.0-32.0); CREATININE 0.6 mg/dL (0.55-1.02); Calcium 9.5 mg/dL (8.5-10.1); Chloride 106 mmol/L (98-107); Estimated GFR 118.49 (mL/min/1.73m2); Glucose 121 mg/dL (74-106); Potassium 3.8 mmol/L (3.5-5.1); Sodium 139 mmol/L (136-145); Total Protein 7.1 g/dL (6.4-8.2); Uric Acid 4.4 mg/dL (2.6-6.0)
[2023-05-22] MEDS: Oxytocin/Normal Saline 30 UNIT/500 ML BAG 1 UNITS IV (15:40)
[2023-05-22] MEDS: Normal Saline Flush 10 ML SYR IVP (15:41)
[2023-05-22] MEDS: Lactated Ringers 1,000 ML 125 ML IV (15:42)
[2023-05-22] MEDS: Lactated Ringers 1,000 ML 200 ML IV (22:37)
[2023-05-23] VITALS (45 sets, daily range): BP systolic 126–182; BP diastolic 60–91; PULSE 0–119; RESP 16; TEMP 36.9–37.4
[2023-05-23] MEDS: Labetalol 100 MG TAB PO ×2 (08:39→14:13)
[2023-05-23] MEDS: Normal Saline Flush 10 ML SYR IVP (08:40)
--- NOTE | 2023-05-23 09:07 | PGE_ITS ---
Date of service: 05/23/23 Time of Service: 00:30 Informed Consent Informed Consent: Induction of Labor (induction methods discussed) Pelvic Exam Comments: cervical exam deferred Contractions Monitor Mode: External Contraction Frequency(min): every 2-4 Contraction Duration(sec): 40-60 Intensity: Mild Fetus A Monitor: External (US) Heart Rate Baseline: 140 Presentation: Cephalic Variability: Moderate (6-25 BPM) Categories: Category I FHR Rhythm: Regular Accelerations: 15 X 15 Decelerations: None Amniotic Membrane Status: Intact Assessment and Plan Assessment and plan (1) Encounter for induction of labor: Status: Acute Assessment and plan: Discussed options of cervical ripening balloon and continuing pitocin, cervical ripening balloon alone or stopping induction overnight for sleep. Lizabeth prefers to stop induction until after breakfast and resume pitocin with cervical ripening balloon in the morning. She took a shower and was encouraged to rest. Will reassess in the morning. Objective Abnormal lab results 05/22/23 Range/Units 15:15 Anion Gap 11.4 H (3-11) mmol/L BUN 6 L (7-18) mg/dL Glucose 121 H (74-106) mg/dL Alkaline Phosphatase 139 H (46-116) U/L Albumin 2.6 L (3.4-5.0) g/dL Temp Pulse Resp BP 98.4 F 86 16 147/88 H 05/23/23 08:42 05/23/23 08:42 05/23/23 08:42 05/23/23 08:42 Laboratory Results WBC 9.06 10^3/uL (4.4-10.8) 05/22/23 06:00 RBC 4.16 10^6/uL (3.93-5.22) 05/22/23 06:00 Hgb 12.7 g/dL (11.2-15.7) 05/22/23 06:00 Hct 37.8 % (36.0-46.0) 05/22/23 06:00 MCV 91 fL (80-95) 05/22/23 06:00 MCH 30.5 pg (27.0-33.0) 05/22/23 06:00 MCHC 33.6 % (32.0-36.0) 05/22/23 06:00 RDW 12.3 % (11.7-14.6) 05/22/23 06:00 Plt Count 228 10^3/uL (130-400) 05/22/23 06:00 MPV 10.7 fL (8.0-11.0) 05/22/23 06:00 Sodium 139 mmol/L (136-145) 05/22/23 15:15 Potassium 3.8 mmol/L (3.5-5.1) 05/22/23 15:15 Chloride 106 mmol/L (98-107) 05/22/23 15:15 Carbon Dioxide 21.6 mmol/L (21.0-32.0) 05/22/23 15:15 Anion Gap 11.4 mmol/L (3-11) H 05/22/23 15:15 BUN 6 mg/dL (7-18) L 05/22/23 15:15 Creatinine 0.6 mg/dL (0.55-1.02) 05/22/23 15:15 Est GFR (CKD-EPI 2020) 118.49 (mL/min/1.73m2) 05/22/23 15:15 Glucose 121 mg/dL (74-106) H 05/22/23 15:15 Uric Acid 4.4 mg/dL (2.6-6.0) 05/22/23 15:15 Calcium 9.5 mg/dL (8.5-10.1) 05/22/23 15:15 Total Bilirubin 0.2 mg/dL (0.2-1.0) 05/22/23 15:15 AST 24 U/L (15-37) 05/22/23 15:15 ALT 34 U/L (14-59) 05/22/23 15:15 Alkaline Phosphatase 139 U/L (46-116) H 05/22/23 15:15 Total Protein 7.1 g/dL (6.4-8.2) 05/22/23 15:15 Albumin 2.6 g/dL (3.4-5.0) L 05/22/23 15:15 Ur Random Creatinine 34.93 mg/dL 05/21/23 19:30 U Random Total Protein 6.2 mg/dL 05/21/23 19:30 U [place] Prot/Creat Ratio 0.17 05/21/23 19:30 Patient ABO/Rh O Positive 05/21/23 11:25 Antibody Screen NEGATIVE 05/21/23 11:25 Vital Signs Reviewed: Yes Subjective Interval history since last seen: Lizabeth has been resting comfortably. Painless contractions. Pitocin is at 20 mu/min for 1 hour. Results Hemoglobin/Hematocrit: Hgb 12.7 g/dL (11.2-15.7) 05/22/23 06:00 Hct 37.8 % (36.0-46.0) 05/22/23 06:00 Abnormal Lab Findings: Abnormal Labs 05/22/23 15:15 Anion Gap 11.4 H BUN 6 L Glucose 121 H Alkaline Phosphatase 139 H Albumin 2.6 L
--- NOTE | 2023-05-23 09:11 | W.PM.OBNL1 ---
Date of service: 05/23/23 Time of Service: 11:03 Informed Consent Informed Consent: Induction of Labor (induction methods discussed) Pelvic Exam Dilation: 0.5 Effacement (%): 25 station: -3 Cervix Position: posterior Consistency: soft Vaginal Exam Presentation: Cephalic Contractions Monitor Mode: External Contraction Frequency(min): occasional Contraction Duration(sec): 40-50 Intensity: Mild Fetus A Monitor: External (US) Heart Rate Baseline: 130 Presentation: Vertex Variability: Moderate (6-25 BPM) Categories: Category I Accelerations: 15 X 15 Decelerations: None Amniotic Membrane Status: Intact Assessment and Plan Assessment and plan (1) Encounter for induction of labor: Status: Acute Assessment and plan: Will resume pitocin at 2 mu/min per protocol. Cervical ripening balloon placed. Anticipated . Provide comfort measures Objective Abnormal lab results 05/22/23 Range/Units 15:15 Anion Gap 11.4 H (3-11) mmol/L BUN 6 L (7-18) mg/dL Glucose 121 H (74-106) mg/dL Alkaline Phosphatase 139 H (46-116) U/L Albumin 2.6 L (3.4-5.0) g/dL Temp Pulse Resp BP 98.4 F 86 16 147/88 H 05/23/23 08:42 05/23/23 08:42 05/23/23 08:42 05/23/23 08:42 Laboratory Results WBC 9.06 10^3/uL (4.4-10.8) 05/22/23 06:00 RBC 4.16 10^6/uL (3.93-5.22) 05/22/23 06:00 Hgb 12.7 g/dL (11.2-15.7) 05/22/23 06:00 Hct 37.8 % (36.0-46.0) 05/22/23 06:00 MCV 91 fL (80-95) 05/22/23 06:00 MCH 30.5 pg (27.0-33.0) 05/22/23 06:00 MCHC 33.6 % (32.0-36.0) 05/22/23 06:00 RDW 12.3 % (11.7-14.6) 05/22/23 06:00 Plt Count 228 10^3/uL (130-400) 05/22/23 06:00 MPV 10.7 fL (8.0-11.0) 05/22/23 06:00 Sodium 139 mmol/L (136-145) 05/22/23 15:15 Potassium 3.8 mmol/L (3.5-5.1) 05/22/23 15:15 Chloride 106 mmol/L (98-107) 05/22/23 15:15 Carbon Dioxide 21.6 mmol/L (21.0-32.0) 05/22/23 15:15 Anion Gap 11.4 mmol/L (3-11) H 05/22/23 15:15 BUN 6 mg/dL (7-18) L 05/22/23 15:15 Creatinine 0.6 mg/dL (0.55-1.02) 05/22/23 15:15 Est GFR (CKD-EPI 2020) 118.49 (mL/min/1.73m2) 05/22/23 15:15 Glucose 121 mg/dL (74-106) H 05/22/23 15:15 Uric Acid 4.4 mg/dL (2.6-6.0) 05/22/23 15:15 Calcium 9.5 mg/dL (8.5-10.1) 05/22/23 15:15 Total Bilirubin 0.2 mg/dL (0.2-1.0) 05/22/23 15:15 AST 24 U/L (15-37) 05/22/23 15:15 ALT 34 U/L (14-59) 05/22/23 15:15 Alkaline Phosphatase 139 U/L (46-116) H 05/22/23 15:15 Total Protein 7.1 g/dL (6.4-8.2) 05/22/23 15:15 Albumin 2.6 g/dL (3.4-5.0) L 05/22/23 15:15 Ur Random Creatinine 34.93 mg/dL 05/21/23 19:30 U Random Total Protein 6.2 mg/dL 05/21/23 19:30 U [place] Prot/Creat Ratio 0.17 05/21/23 19:30 Patient ABO/Rh O Positive 05/21/23 11:25 Antibody Screen NEGATIVE 05/21/23 11:25 Subjective Patient Reports: No new Complaints Interval history since last seen: Lizabeth slept well and awoke at 0830 and had breakfast. She wishes to resume pitocin and have cervical ripening balloon inserted. Results Hemoglobin/Hematocrit: Hgb 12.7 g/dL (11.2-15.7) 05/22/23 06:00 Hct 37.8 % (36.0-46.0) 05/22/23 06:00 Abnormal Lab Findings: Abnormal Labs 05/22/23 15:15 Anion Gap 11.4 H BUN 6 L Glucose 121 H Alkaline Phosphatase 139 H Albumin 2.6 L Pocus Exam Limited OB Exam DATE OF EXAM:: 05/23/23 TIME OF EXAM:: 10:52 PROVIDER THAT PERFORMED THE STUDY: Olamide Simons IS THIS A REPEAT EXAM DURING THIS ENCOUNTER: No Type of Exam: Pelvic OB Trans Abdominal REASON FOR EXAM: other indication: presentation Exam Complete. INCIDENTAL FINDINGS: vertex presentation WW Pocus Exam Exam testing Date/Time of Exam: Date of exam: 05/23/2023 Time of exam: 11:02 am Performing Provider: Olamide Simons TEENA Calculator Estimated Delivery Date Method Current WG Current Estimate 05/23/23 Ultrasound #1 40w 0d Other Estimates 05/30/23 LMP (Uncertain) 39w 0d position Gestational age (weeks): 40 Presentation: Vertex Coding for Transabdominal exam: Complete exam
[2023-05-23] MEDS: Oxytocin/Normal Saline 30 UNIT/500 ML BAG 2 UNITS IV (10:36)
[2023-05-23] MEDS: Lactated Ringers 1,000 ML 125 ML IV ×2 (10:37→17:58)
--- NOTE | 2023-05-23 14:09 | PGE_ITS ---
Date of service: 05/23/23 Time of Service: 14:10 Informed Consent Informed Consent: Induction of Labor (induction methods discussed) Pelvic Exam Comments: balloon in place. Exam deferred Contractions Monitor Mode: External Contraction Frequency(min): every 4 min Contraction Duration(sec): 50-60 Intensity: Mild Fetus A Monitor: External (US) Heart Rate Baseline: 130 Presentation: Cephalic Variability: Moderate (6-25 BPM) Categories: Category I FHR Rhythm: Regular Accelerations: 15 X 15 Decelerations: None Amniotic Membrane Status: Intact Assessment and Plan Assessment and plan (1) Encounter for induction of labor: Status: Acute Assessment and plan: position changes for comfort and anticipate (2) Chronic hypertension affecting : Status: Acute Assessment and plan: consult with Dr Dominguez. IV labetalol 20 mg and PO 100 mg. increase PO labetalol to 200 Mg BID. preeclampsia serum labs ordered. Will continue to monitor Objective Abnormal lab results 05/22/23 Range/Units 15:15 Anion Gap 11.4 H (3-11) mmol/L BUN 6 L (7-18) mg/dL Glucose 121 H (74-106) mg/dL Alkaline Phosphatase 139 H (46-116) U/L Albumin 2.6 L (3.4-5.0) g/dL Temp Pulse Resp BP 98.4 F 68 16 165/83 H 05/23/23 13:41 05/23/23 13:53 05/23/23 13:41 05/23/23 13:53 Laboratory Results WBC 9.06 10^3/uL (4.4-10.8) 05/22/23 06:00 RBC 4.16 10^6/uL (3.93-5.22) 05/22/23 06:00 Hgb 12.7 g/dL (11.2-15.7) 05/22/23 06:00 Hct 37.8 % (36.0-46.0) 05/22/23 06:00 MCV 91 fL (80-95) 05/22/23 06:00 MCH 30.5 pg (27.0-33.0) 05/22/23 06:00 MCHC 33.6 % (32.0-36.0) 05/22/23 06:00 RDW 12.3 % (11.7-14.6) 05/22/23 06:00 Plt Count 228 10^3/uL (130-400) 05/22/23 06:00 MPV 10.7 fL (8.0-11.0) 05/22/23 06:00 Sodium 139 mmol/L (136-145) 05/22/23 15:15 Potassium 3.8 mmol/L (3.5-5.1) 05/22/23 15:15 Chloride 106 mmol/L (98-107) 05/22/23 15:15 Carbon Dioxide 21.6 mmol/L (21.0-32.0) 05/22/23 15:15 Anion Gap 11.4 mmol/L (3-11) H 05/22/23 15:15 BUN 6 mg/dL (7-18) L 05/22/23 15:15 Creatinine 0.6 mg/dL (0.55-1.02) 05/22/23 15:15 Est GFR (CKD-EPI 2020) 118.49 (mL/min/1.73m2) 05/22/23 15:15 Glucose 121 mg/dL (74-106) H 05/22/23 15:15 Uric Acid 4.4 mg/dL (2.6-6.0) 05/22/23 15:15 Calcium 9.5 mg/dL (8.5-10.1) 05/22/23 15:15 Total Bilirubin 0.2 mg/dL (0.2-1.0) 05/22/23 15:15 AST 24 U/L (15-37) 05/22/23 15:15 ALT 34 U/L (14-59) 05/22/23 15:15 Alkaline Phosphatase 139 U/L (46-116) H 05/22/23 15:15 Total Protein 7.1 g/dL (6.4-8.2) 05/22/23 15:15 Albumin 2.6 g/dL (3.4-5.0) L 05/22/23 15:15 Ur Random Creatinine 34.93 mg/dL 05/21/23 19:30 U Random Total Protein 6.2 mg/dL 05/21/23 19:30 U [place] Prot/Creat Ratio 0.17 05/21/23 19:30 Patient ABO/Rh O Positive 05/21/23 11:25 Antibody Screen NEGATIVE 05/21/23 11:25 Vital Signs Reviewed: Yes Subjective Patient Reports: New Complaints (pain with contractions) Interval history since last seen: BP elevated 140-182/77-88. Results Hemoglobin/Hematocrit: Hgb 12.7 g/dL (11.2-15.7) 05/22/23 06:00 Hct 37.8 % (36.0-46.0) 05/22/23 06:00 Abnormal Lab Findings: Abnormal Labs 05/22/23 15:15 Anion Gap 11.4 H BUN 6 L Glucose 121 H Alkaline Phosphatase 139 H Albumin 2.6 L
[2023-05-23 14:40] LABS: HCT 36.9 % (36.0-46.0); HGB 12.9 g/dL (11.2-15.7); MCH 31.1 pg (27.0-33.0); MCV 89 fL (80-95); MPV 11.1 fL (8.0-11.0); Platelet Count 243 10^3/uL (130-400); RBC 4.15 10^6/uL (3.93-5.22); RDW 12.4 % (11.7-14.6); RDW-SD 40.7 fL
[2023-05-23] MEDS: Labetalol 100 MG/20 ML VIAL 20 MG IVP (14:42)
[2023-05-23 14:58] LABS: ALT 33 U/L (14-59); AST 23 U/L (15-37); Albumin 2.6 g/dL (3.4-5.0); Alkaline Phosphatase 138 U/L (46-116); Anion Gap 11.5 mmol/L (3-11); BUN 7 mg/dL (7-18); Bilirubin, Total 0.2 mg/dL (0.2-1.0); CO2 20.5 mmol/L (21.0-32.0); CREATININE 0.5 mg/dL (0.55-1.02); Calcium 9.7 mg/dL (8.5-10.1); Chloride 104 mmol/L (98-107); Estimated GFR 123.81 (mL/min/1.73m2); Glucose 95 mg/dL (74-106); Potassium 4.2 mmol/L (3.5-5.1); Sodium 136 mmol/L (136-145); Uric Acid 4.1 mg/dL (2.6-6.0)
[2023-05-23] MEDS: Labetalol 100 MG TAB 200 MG PO (20:03)
--- NOTE | 2023-05-23 22:44 | W.PM.OBNL1 ---
Date of service: 05/23/23 Time of Service: 22:44 Informed Consent Informed Consent: Induction of Labor (induction methods discussed) Pelvic Exam Dilation: 2 Effacement (%): 50 station: -2 Cervix Position: posterior Consistency: soft Vaginal Exam Presentation: Cephalic Contractions Monitor Mode: External Contraction Frequency(min): every 2-4 Contraction Duration(sec): 50-60 Intensity: Mild Fetus A Monitor: External (US) Heart Rate Baseline: 130 Variability: Moderate (6-25 BPM) Categories: Category I FHR Rhythm: Regular Accelerations: 15 X 15 Decelerations: None Amniotic Membrane Status: Intact Assessment and Plan Assessment and plan (1) Encounter for induction of labor: Status: Acute Assessment and plan: Dari requests to have the pitocin stopped so she can take a shower and that was allowed. Will plan to apply the [place] monitor after showering and resume pitocin infusion at 10 mu /minutes and increase by 2 mu/min every 30 minutes to maintain adequate contraction pattern. Dr Dominguez was present at the Center at 1730 and aware of dari's status and plan to remove the balloon at 2230. (2) Family history of hypertension: Status: Acute Assessment and plan: BP requested after shower and will continue to assess. Objective Abnormal lab results 05/23/23 Range/Units 14:32 WBC 11.10 H (4.4-10.8) 10^3/uL MPV 11.1 H (8.0-11.0) fL Carbon Dioxide 20.5 L (21.0-32.0) mmol/L Anion Gap 11.5 H (3-11) mmol/L Creatinine 0.5 L (0.55-1.02) mg/dL Alkaline Phosphatase 138 H (46-116) U/L Albumin 2.6 L (3.4-5.0) g/dL Temp Pulse Resp BP 99.3 F 78 16 134/79 05/23/23 20:02 05/23/23 20:02 05/23/23 20:02 05/23/23 20:02 Laboratory Results WBC 11.10 10^3/uL (4.4-10.8) H 05/23/23 14:32 RBC 4.15 10^6/uL (3.93-5.22) 05/23/23 14:32 Hgb 12.9 g/dL (11.2-15.7) 05/23/23 14:32 Hct 36.9 % (36.0-46.0) 05/23/23 14:32 MCV 89 fL (80-95) 05/23/23 14:32 MCH 31.1 pg (27.0-33.0) 05/23/23 14:32 MCHC 35.0 % (32.0-36.0) 05/23/23 14:32 RDW 12.4 % (11.7-14.6) 05/23/23 14:32 Plt Count 243 10^3/uL (130-400) 05/23/23 14:32 MPV 11.1 fL (8.0-11.0) H 05/23/23 14:32 Sodium 136 mmol/L (136-145) 05/23/23 14:32 Potassium 4.2 mmol/L (3.5-5.1) 05/23/23 14:32 Chloride 104 mmol/L (98-107) 05/23/23 14:32 Carbon Dioxide 20.5 mmol/L (21.0-32.0) L 05/23/23 14:32 Anion Gap 11.5 mmol/L (3-11) H 05/23/23 14:32 BUN 7 mg/dL (7-18) 05/23/23 14:32 Creatinine 0.5 mg/dL (0.55-1.02) L 05/23/23 14:32 Est GFR (CKD-EPI 2020) 123.81 (mL/min/1.73m2) 05/23/23 14:32 Glucose 95 mg/dL (74-106) 05/23/23 14:32 Uric Acid 4.1 mg/dL (2.6-6.0) 05/23/23 14:32 Calcium 9.7 mg/dL (8.5-10.1) 05/23/23 14:32 Total Bilirubin 0.2 mg/dL (0.2-1.0) 05/23/23 14:32 AST 23 U/L (15-37) 05/23/23 14:32 ALT 33 U/L (14-59) 05/23/23 14:32 Alkaline Phosphatase 138 U/L (46-116) H 05/23/23 14:32 Total Protein 7.0 g/dL (6.4-8.2) 05/23/23 14:32 Albumin 2.6 g/dL (3.4-5.0) L 05/23/23 14:32 Ur Random Creatinine 34.93 mg/dL 05/21/23 19:30 U Random Total Protein 6.2 mg/dL 05/21/23 19:30 U [place] Prot/Creat Ratio 0.17 05/21/23 19:30 Patient ABO/Rh O Positive 05/21/23 11:25 Antibody Screen NEGATIVE 05/21/23 11:25 Subjective Patient Reports: No new Complaints Interval history since last seen: Dari had a period of stronger contractions and vomited earlier but she feels as though contractions are less strong now. She reports watery bloody show which soaked a pad. Blood-tinged mucus also reported. The cervical ripening balloon was deflated at 2230. She received labetalol 200 mg PO at 2000. BP has been 137/77 and 134/79. Pitocin has been infusing for 12 hours. Results Hemoglobin/Hematocrit: Hgb 12.9 g/dL (11.2-15.7) 05/23/23 14:32 Hct 36.9 % (36.0-46.0) 05/23/23 14:32 Abnormal Lab Findings: Abnormal Labs 05/22/23 05/23/23 15:15 14:32 WBC 11.10 H MPV 11.1 H Carbon Dioxide 20.5 L Anion Gap 11.4 H 11.5 H BUN 6 L Creatinine 0.5 L Glucose 121 H Alkaline Phosphatase 139 H 138 H Albumin 2.6 L 2.6 L
[2023-05-24] VITALS (253 sets, daily range): BP systolic 121–163; BP diastolic 64–86; PULSE 0–123
[2023-05-24] MEDS: Lactated Ringers 1,000 ML 125 ML IV (02:03)
--- NOTE | 2023-05-24 02:59 | W.PM.OBNL1 ---
Date of service: 05/24/23 Time of Service: 02:59 Informed Consent Informed Consent: Induction of Labor (induction methods discussed) Pelvic Exam Comments: cervical exam deferred. cervical mucus reported which is blood-tinged. Contractions Monitor Mode: External Contraction Frequency(min): every 2-3 minutes Contraction Duration(sec): 40-60 Intensity: Mild Fetus A Monitor: External (US) Heart Rate Baseline: 140 Variability: Moderate (6-25 BPM) Categories: Category I FHR Rhythm: Regular Accelerations: 15 X 15 Decelerations: Variable Recurrence: Episodic Amniotic Membrane Status: Intact Assessment and Plan Assessment and plan (1) Encounter for induction of labor: Status: Acute Assessment and plan: Discussed with Lizabeth the options of increasing the pitocin or stopping it for rest and resuming induction after 4 hours. She wishes to stop it and rest four to six hours and will resume induction with pitocin or misoprostol later in the morning. (2) Family history of hypertension: Status: Acute Assessment and plan: BP 121/64. Repeat BP when Lizabeth awakes or in 4 hours Objective Abnormal lab results 05/23/23 Range/Units 14:32 WBC 11.10 H (4.4-10.8) 10^3/uL MPV 11.1 H (8.0-11.0) fL Carbon Dioxide 20.5 L (21.0-32.0) mmol/L Anion Gap 11.5 H (3-11) mmol/L Creatinine 0.5 L (0.55-1.02) mg/dL Alkaline Phosphatase 138 H (46-116) U/L Albumin 2.6 L (3.4-5.0) g/dL Temp Pulse Resp BP 99.3 F 75 16 121/64 05/23/23 20:02 05/24/23 02:55 05/23/23 20:02 05/24/23 02:55 Laboratory Results WBC 11.10 10^3/uL (4.4-10.8) H 05/23/23 14:32 RBC 4.15 10^6/uL (3.93-5.22) 05/23/23 14:32 Hgb 12.9 g/dL (11.2-15.7) 05/23/23 14:32 Hct 36.9 % (36.0-46.0) 05/23/23 14:32 MCV 89 fL (80-95) 05/23/23 14:32 MCH 31.1 pg (27.0-33.0) 05/23/23 14:32 MCHC 35.0 % (32.0-36.0) 05/23/23 14:32 RDW 12.4 % (11.7-14.6) 05/23/23 14:32 Plt Count 243 10^3/uL (130-400) 05/23/23 14:32 MPV 11.1 fL (8.0-11.0) H 05/23/23 14:32 Sodium 136 mmol/L (136-145) 05/23/23 14:32 Potassium 4.2 mmol/L (3.5-5.1) 05/23/23 14:32 Chloride 104 mmol/L (98-107) 05/23/23 14:32 Carbon Dioxide 20.5 mmol/L (21.0-32.0) L 05/23/23 14:32 Anion Gap 11.5 mmol/L (3-11) H 05/23/23 14:32 BUN 7 mg/dL (7-18) 05/23/23 14:32 Creatinine 0.5 mg/dL (0.55-1.02) L 05/23/23 14:32 Est GFR (CKD-EPI 2020) 123.81 (mL/min/1.73m2) 05/23/23 14:32 Glucose 95 mg/dL (74-106) 05/23/23 14:32 Uric Acid 4.1 mg/dL (2.6-6.0) 05/23/23 14:32 Calcium 9.7 mg/dL (8.5-10.1) 05/23/23 14:32 Total Bilirubin 0.2 mg/dL (0.2-1.0) 05/23/23 14:32 AST 23 U/L (15-37) 05/23/23 14:32 ALT 33 U/L (14-59) 05/23/23 14:32 Alkaline Phosphatase 138 U/L (46-116) H 05/23/23 14:32 Total Protein 7.0 g/dL (6.4-8.2) 05/23/23 14:32 Albumin 2.6 g/dL (3.4-5.0) L 05/23/23 14:32 Ur Random Creatinine 34.93 mg/dL 05/21/23 19:30 U Random Total Protein 6.2 mg/dL 05/21/23 19:30 U [place] Prot/Creat Ratio 0.17 05/21/23 19:30 Patient ABO/Rh O Positive 05/21/23 11:25 Antibody Screen NEGATIVE 05/21/23 11:25 Subjective Patient Reports: No new Complaints Interval history since last seen: Lizabeth has been sleeping soundly for the past hour and is unaware of contractions. Results Hemoglobin/Hematocrit: Hgb 12.9 g/dL (11.2-15.7) 05/23/23 14:32 Hct 36.9 % (36.0-46.0) 05/23/23 14:32 Abnormal Lab Findings: Abnormal Labs 05/22/23 05/23/23 15:15 14:32 WBC 11.10 H MPV 11.1 H Carbon Dioxide 20.5 L Anion Gap 11.4 H 11.5 H BUN 6 L Creatinine 0.5 L Glucose 121 H Alkaline Phosphatase 139 H 138 H Albumin 2.6 L 2.6 L
[2023-05-24] MEDS: Labetalol 100 MG TAB 200 MG PO (08:35)
[2023-05-24 10:36] LABS: HCT 37.5 % (36.0-46.0); HGB 12.6 g/dL (11.2-15.7); MCH 30.4 pg (27.0-33.0); MCHC 33.6 % (32.0-36.0); MCV 91 fL (80-95); MPV 10.9 fL (8.0-11.0); Platelet Count 234 10^3/uL (130-400); RBC 4.14 10^6/uL (3.93-5.22); RDW 12.4 % (11.7-14.6); RDW-SD 40.9 fL; WBC 10.96 10^3/uL (4.4-10.8)
--- NOTE | 2023-05-24 10:43 | OBCE_ITS ---
Date of service: 05/24/23 Time of Service: 10:44 Assessment and Plan Assessment and plan (1) Encounter for induction of labor: Status: Acute Assessment and plan: I discussed the plan with the patient and her partner. We will administer Cervidil for the next 12 hours. I recommended oxytocin as the next step in rec and explained to the patient that the oxytocin itself would not cause nonreassuring heart rate but in fact would demonstrate placental insufficiency. I explained that placental insufficiency causing heart rate changes would be reason to do a delivery and if the patient showed no evidence of cervical change or active labor after a not yet specified period of time. (2) Chronic hypertension affecting : Status: Acute Assessment and plan: Will recheck labs today. Continue labetalol 200 mg twice daily (3) Advanced maternal age (AMA) in : Status: Acute History of Present Illness History of Present Illness Chief Complaint: 1 para 0 female at 40 W1D EGA induction of labor for hypertension Narrative: Patient is a 37-year-old G1, P0 female with a TEENA of 05/23/2023 who was admitted at 39 W5D EGA for induction of labor secondary to chronic hypertension. Patient first trimester blood pressure 120/78, second trimester blood pressure 135/82. patient currently takes labetalol 100 mg twice daily. course: Total weight gain: 33lbs. S=D. 05/01/23 EFW 56% with adequate fluid. Patient has been given misoprostol and had a Neely balloon catheter placed overnight in addition to anoxytocin infusion No active labor at this time. Yesterday her Labealol dose was increased to 200mg twice daily after a diastolic blood pressure was elevated to 165. Normal labs upon admission and on 05/23/2023. I was asked to introduce myself to the patient and discussed the plan of care going forward. After discussion with the patient and her partner the decision was made to place Cervidil for another attempt at cervical ripening. I explained to the patient that after cervical ripening I would recommend Oxytocin infusion. Consults Consult date: 05/24/23 Requesting physician: Velia Saul Review of Systems Narrative: Patient is a 37-year-old G1, P0 female currently at 40 W1D EGA who was admitted on 05/21/2023 for cervical ripening with the intention of induction of labor. Patient has been given misoprostol and had a Neely balloon catheter placed overnight along with oxytocin. No appreciable active labor at this time. Her blood pressure is currently treated with 100 mg of labetalol twice daily and she received 1 dose of IV labetalol yesterday when her blood pressure was elevated to----- Labs upon admission and -----on 2023 I was asked to introduce myself to the patient and discussed the plan of care going forward. Constitutional Constitutional: Reports as per HPI Comments: No headache no visual changes. Cardiovascular Cardiovascular: Reports as per HPI and Reports pedal edema (bialteral, non- pitting edema.) Respiratory Respiratory: Reports system reviewed and no additional complaints, except as documented Gastrointestinal Gastrointestinal: Denies abdominal pain and Denies vomiting Comments: No right upper quadrant pain nausea nausea and vomiting Genitourinary Comments: Membranes intact. Musculoskeletal Musculoskeletal: Reports system reviewed and no additional complaints, except as documented Integumentary/Breasts Skin/Breast: Reports system reviewed and no additional complaints, except as documented Neurologic Comments: No findings consistent with preeclampsia Psychiatric Psychiatric: Reports system reviewed and no additional complaints, except as documented Comments: Patient remains committed to vaginal delivery. FORMERLY [facility], [facility]–1983 All Active Problems (Updated 05/21/23 @ 12:08 by Olamide Simons CNM) Encounter for induction of labor (Acute) Family history of hypertension (Acute) Chronic hypertension affecting (Acute) Former smoker (Acute) Advanced maternal age (AMA) in (Acute) (Acute) Medical History (Updated 05/21/23 @ 12:08 by Olamide Smions CNM) Elevated BP without diagnosis of hypertension Social History (Updated 11/05/22 @ 14:59 by Kristen Ang NP) Smoking/Tobacco Use Status: Never Smoking risk assessment performed?: Yes Alcohol Intake: never Substance use type: does not use Housing: apartment Female Reproductive History Menstrual control method: none History History 2 1 Para 0 Hx # Term Pregnancies 0 Multiple births 0 Hx # Pregnancies 0 Ectopic pregnancies 0 AB induced 0 Hx Number of Living Children 0 AB spontaneous 0 Exam Narrative Exam Narrative: Physical exam deferred. 100% of the 15-minute visit was spent in [id number] counseling with the patient with Adelaida Saul CNM present. Const General: cooperative and no acute distress Nutritional Appearance: well nourished Orientation: alert, awake and oriented x3 Neck Neck: normal visual inspection Thyroid: thyroid normal Chest Chest: deferred Resp Effort & Inspection: normal respiratory effort Auscultation: clear to auscultation bilaterally Cardio Rate: regular rate Rhythm: regular rhythm GI Palpation: soft and no hepatosplenomegaly Other: gravid no focal tenderness Skin General skin exam: no rashes or lesions noted Psych Appearance: grossly normal Mental Status: mental status grossly normal Speech and Movement: speech and movement normal Mood: congruent mood Results Last Vital Signs Temp 99.3 F 05/23/23 20:02 Pulse 86 05/24/23 10:27 Resp 16 05/23/23 20:02 BP 139/74 05/24/23 08:39 Labs 05/24/23 10:25 05/24/23 10:25 Labs: Laboratory Results - last 24 hr 05/23/23 05/24/23 14:32 10:25 WBC 11.10 H 10.96 H RBC 4.15 4.14 Hgb 12.9 12.6 Hct 36.9 37.5 MCV 89 91 MCH 31.1 30.4 MCHC 35.0 33.6 RDW 12.4 12.4 Plt Count 243 234 MPV 11.1 H 10.9 Sodium 136 Potassium 4.2 Chloride 104 Carbon Dioxide 20.5 L Anion Gap 11.5 H BUN 7 Creatinine 0.5 L Est GFR (CKD-EPI 2020) 123.81 Glucose 95 Uric Acid 4.1 Calcium 9.7 Total Bilirubin 0.2 AST 23 ALT 33 Alkaline Phosphatase 138 H Total Protein 7.0 Albumin 2.6 L
[2023-05-24 10:50] LABS: PROTEIN < 6.0 mg/dL
[2023-05-24 10:50] LABS: ALT 31 U/L (14-59); AST 23 U/L (15-37); Albumin 2.5 g/dL (3.4-5.0); Alkaline Phosphatase 140 U/L (46-116); Anion Gap 10.8 mmol/L (3-11); BUN 6 mg/dL (7-18); Bilirubin, Total 0.3 mg/dL (0.2-1.0); CO2 23.2 mmol/L (21.0-32.0); CREATININE 0.6 mg/dL (0.55-1.02); Chloride 104 mmol/L (98-107); Estimated GFR 118.49 (mL/min/1.73m2); Glucose 155 mg/dL (74-106); Potassium 3.8 mmol/L (3.5-5.1); Sodium 138 mmol/L (136-145); Total Protein 6.8 g/dL (6.4-8.2)
[2023-05-24 10:51] LABS: COMMENT (LAB VIEW ONLY) < 13.00 mg/dL
--- NOTE | 2023-05-24 10:51 | PGE_ITS ---
Date of service: 05/24/23 Time of Service: 10:51 Informed Consent Informed Consent: Induction of Labor (pt consents to cervidil insertion today) Pelvic Exam Dilation: 2 Effacement (%): 50 station: -3 Cervix Position: posterior Consistency: soft BISHOPS Score(Cervical Ripeness Score): 4 Contractions Monitor Mode: External ([place]) Contraction Frequency(min): rare Intensity: Mild Fetus A Monitor: External (US) ([place]) Heart Rate Baseline: 135 Variability: Moderate (6-25 BPM) Categories: Category I Accelerations: 15 X 15 Decelerations: None Amniotic Membrane Status: Intact Assessment and Plan Assessment and plan (1) Encounter for induction of labor: Status: Acute Assessment and plan: A: 37 yo G1 @ 40+1 wks, cHTN controlled w/labetalol 20 mg PO BID HD#4, IOL in progress s/p 300 mcg misoprostel PO, 2 days pitocin infusion, 12 hrs cervical balloon Category 1 tracing, no labor thus far P: Dr. Espinal in to speak with pt regarding options moving forward Pt would like to try cervidil vaginal tape today Will repeat labs, nml yesterday Clear liquids after a light breakfast Comfort measures as pt desires Collaborative MD/CNM management (2) Chronic hypertension affecting : Status: Acute (3) Advanced maternal age (AMA) in : Status: Acute Objective Vital Signs Reviewed: Yes Notable Details: BP stable, pt taking labetalol 200 mcg BID PO Subjective Patient Reports: No new Complaints (mild appetite, no nausea, no abd discomforts, baby is active, small amt bloody vaginal mucous noted)
[2023-05-24] MEDS: Dinoprostone-CERVICAL 10 MG VSUPP VG (11:02)
[2023-05-24] MEDS: Normal Saline Flush 10 ML SYR IVP (13:31)
--- NOTE | 2023-05-24 16:50 | W.PM.OBNL1 ---
Date of service: 05/24/23 Time of Service: 15:30 Informed Consent Informed Consent: Induction of Labor (pt consents to cervidil insertion today) Pelvic Exam Comments: VE deferred, no change in clinical presentation. Contractions Monitor Mode: External ([place]) Contraction Frequency(min): rare Intensity: Mild Fetus A Monitor: External (US) ([place]) Heart Rate Baseline: 140 Variability: Moderate (6-25 BPM) Accelerations: 15 X 15 Decelerations: None Amniotic Membrane Status: Intact Assessment and Plan Assessment and plan (1) Encounter for induction of labor: Status: Acute Assessment and plan: A: No labor, cervidil in place. Day #4 IOL for cHTN, category 1 tracing Labetalol dose was increased yesterday to 200 mg PO BID, BP stable Discussed plan of care with pt after cervidil is removed @ 2300 Advised to pt that pitocin and AROM are recommended if no labor after cervidil Pt states she does not want to do either of these interventions, she states she will probably choose to go home in the morning if not in labor I advised this is against medical advice, AMA paperwork would be required I reviewed again the risks of HTN to mother and baby including abruption, placental insufficiency, bleeding, hemorrhage, c/s and related complications P: Continue cervidil until 2300 or onset of labor or category [address] Espinal informed of pt resistance to recommended treatment, request she meet with pt to discuss medical risks and tx options (2) Chronic hypertension affecting : Status: Acute (3) Advanced maternal age (AMA) in : Status: Acute Objective Abnormal lab results 05/24/23 Range/Units 10:25 WBC 10.96 H (4.4-10.8) 10^3/uL BUN 6 L (7-18) mg/dL Glucose 155 H (74-106) mg/dL Alkaline Phosphatase 140 H (46-116) U/L Albumin 2.5 L (3.4-5.0) g/dL Temp Pulse Resp BP 99.3 F 82 16 163/77 H 05/23/23 20:02 05/24/23 16:49 05/23/23 20:02 05/24/23 16:21 Laboratory Results WBC 10.96 10^3/uL (4.4-10.8) H 05/24/23 10:25 RBC 4.14 10^6/uL (3.93-5.22) 05/24/23 10:25 Hgb 12.6 g/dL (11.2-15.7) 05/24/23 10:25 Hct 37.5 % (36.0-46.0) 05/24/23 10:25 MCV 91 fL (80-95) 05/24/23 10:25 MCH 30.4 pg (27.0-33.0) 05/24/23 10:25 MCHC 33.6 % (32.0-36.0) 05/24/23 10:25 RDW 12.4 % (11.7-14.6) 05/24/23 10:25 Plt Count 234 10^3/uL (130-400) 05/24/23 10:25 MPV 10.9 fL (8.0-11.0) 05/24/23 10:25 Sodium 138 mmol/L (136-145) 05/24/23 10:25 Potassium 3.8 mmol/L (3.5-5.1) 05/24/23 10:25 Chloride 104 mmol/L (98-107) 05/24/23 10:25 Carbon Dioxide 23.2 mmol/L (21.0-32.0) 05/24/23 10:25 Anion Gap 10.8 mmol/L (3-11) 05/24/23 10:25 BUN 6 mg/dL (7-18) L 05/24/23 10:25 Creatinine 0.6 mg/dL (0.55-1.02) 05/24/23 10:25 Est GFR (CKD-EPI 2020) 118.49 (mL/min/1.73m2) 05/24/23 10:25 Glucose 155 mg/dL (74-106) H 05/24/23 10:25 Uric Acid 4.1 mg/dL (2.6-6.0) 05/23/23 14:32 Calcium 9.0 mg/dL (8.5-10.1) 05/24/23 10:25 Total Bilirubin 0.3 mg/dL (0.2-1.0) 05/24/23 10:25 AST 23 U/L (15-37) 05/24/23 10:25 ALT 31 U/L (14-59) 05/24/23 10:25 Alkaline Phosphatase 140 U/L (46-116) H 05/24/23 10:25 Total Protein 6.8 g/dL (6.4-8.2) 05/24/23 10:25 Albumin 2.5 g/dL (3.4-5.0) L 05/24/23 10:25 Ur Random Creatinine < 13.00 mg/dL 05/24/23 10:20 U Random Total Protein < 6.0 mg/dL 05/24/23 10:20 U [place] Prot/Creat Ratio 05/24/23 10:20 Patient ABO/Rh O Positive 05/21/23 11:25 Antibody Screen NEGATIVE 05/21/23 11:25 Vital Signs Reviewed: Yes Objective Narrative Objective Narrative: BP ranges 130's to 150 over 70's-80's Afebrile Category 1 tracing Pt is comfortable, ambulating in room Subjective Patient Reports: No new Complaints Interval history since last seen: slightly increased discomforts in lower abdomen but not very painful. Would like to shower. Cervidil was inserted at 1100. Results Additional Findings Results: CMP, CBC and urine prot/creat ratio are nml today
--- NOTE | 2023-05-24 18:17 | DSE_ITS ---
Date of service: 05/24/23 Time of Service: 18:17 DS: Diagnosis Discharge Diagnosis (1) Encounter for induction of labor: Status: Acute (2) Chronic hypertension affecting : Status: Acute (3) Advanced maternal age (AMA) in : Status: Acute Discharge Plan Disposition Patient Disposition: Against Medical Advice Condition: Stable Discharge Details Reason For Visit: Induction of labor Admit Date/Time: 05/21/23 11:04 Admit Provider: Olamide Simons Attending Provider: Olamide Simons Primary Care Provider: Unknown,Unknown Hospital Course Hospital Course: Patient is a 37-year-old G1, P0 female currently 40w1d EGA who was admitted at 39W5D EGA for induction of labor secondary to chronic hypertension. Patient first trimester blood pressure 120/78, second trimester blood pressure 135/82. patient currently takes labetalol 100 mg twice daily. course: Total weight gain: 33lbs. S=D. 05/01/23 EFW 56% with adequate fluid. Patient was administered misoprostol and had a Neely balloon catheter placed overnight in addition to receiving an Oxytocin infusion without evidence of active labor. Patient's Labealol dose was increased to 200mg twice daily after a systolic blood pressure of 165. Serial CMP and CBCs were normal. After receiving Cervidil the morning of 05/24/23 there was no evidence of contractions on external tocometer. I performed a SVE: unable to reach cervix which was posterior and JORDYN not well developed. Vertex presentation high in the pelvis. I expressed my concerns to the patient and her partner that she was not in labor and that the treatment that I would recommend would be Oxytocin infusion after completion of the Cervidil placement. She declined the Oxytocin stating that she would rather leave and wait for spontaneous labor in 2 or 3 days. The complications of preeclampsia and uncontrolled HTN were reviewed with the pt including damage to vital organs including stroke, renal and liver damage and . She accepted the risk of leaving and awaiting for labor. Signs and symptoms of preeclampsia were reviewed with the patient and she agreed to return to the hospital if she were to experience any such symptoms. Pt has a blood pressure cuff at home that she will measure her blood pressure and enough Labetalol to increase her dose to 200mg twice a day. She will return to the Center at 12noon 05/25/23 and 05/26/23. Lastly I discussed performing a primary delivery if she were to develop pre-eclampsia and was not in labor or there was non-reassuring heart rate tracing or lastly she decided against further IOL. Cashier General electronic data processing auditor and nursing house supervisor notifed of pt's signing AMA form and leaving unit with plans to return tomorrow for BP check. Home Meds and New Rx's Prescriptions: New labetalol 200 mg tablet 200 mg PO BID Qty: 30 0RF Discontinued labetalol 100 mg tablet 100 mg PO BID Qty: 60 4RF No Action Classic 28 mg iron- 800 mcg tablet PO DAILY aspirin 81 mg tablet,delayed release (DR/EC) 81 mg PO DAILY Qty: 90 4RF Rx Instructions: 1 tab daily and 2 tabs every other day (DME) blood-glucose meter [FreeStyle Lite Meter] Kit See Rx Instructions .Route Qty: 1 0RF Rx Instructions: As directed (DME) FreeStyle Lite Strips Strip See Rx Instructions .Route Qty: 50 4RF Rx Instructions: QID (DME) lancets [FreeStyle Lancets] 28 gauge misc See Rx Instructions .Route Qty: 100 4RF Rx Instructions: QID alcohol swabs Pads, Medicated 1 pad topical QID Qty: 100 3RF Discharge Instructions Additional Instructions: return to for BP check 05/25/23. [facility] to [facility] in event of signs of preeclampsia. Activity:: Activity as Tolerated Equipment/Supplies:: No Equipment Needed Diet:: As Tolerated Discharge Orders Discharge Orders: Discharge Order (Routine); Ordered 05/24/23 Ordered By: Yancy Espinal Discharge Data Discharge Date/Time-TO BE ENTERED AT DEPARTURE: 05/24/23 17:17 Discharge Comment: AMA; reports coming back 05/25/22 at 12:00 for BP c DS: Summary Time Spent with Patient providing and/or coordinating discharge services: Greater than 30 minutes Status at Discharge Functional status at discharge: independent ambulation Overall status at discharge: other (guarded.) Mental Status: mental status grossly normal Speech and Movement: speech and movement normal Mood: congruent mood Affect: normal affect Quality:SDOH Health Related Social Needs: Health related social needs inadequate housing Exam Narrative Exam Narrative: as noted on HPI Psych Mental Status: mental status grossly normal Speech and Movement: speech and movement normal Mood: congruent mood Affect: normal affect DS: Data Vitals/I&O Vitals and I&O: Vital Signs Temperature 99.3 F 05/23/23 20:02 Temperature Source Oral 05/23/23 20:02 Pulse 96 H 05/24/23 16:57 Pulse Rhythm Regular 05/24/23 15:45 Respiratory Rate 16 05/23/23 20:02 Respiratory Depth Normal 05/23/23 20:28 Blood Pressure 163/77 H 05/24/23 16:21 Blood Pressure Mean 106 05/22/23 19:47 Pain Level 0 05/21/23 11:10 Comment Provider notified. 05/23/23 13:41 Intake & Output 05/23/23 05/24/23 05/24/23 23:59 11:59 23:59 Intake Total 1142.683 / 1527.583 164.450 / 164.450 Output Total 2950 / 2950 Balance -1807.317 / -1422.417 164.450 / 164.450 Intake: IV 1142.683 / 1527.583 164.450 / 164.450 Output: Urine 2950 / 2950 Other: Urine Color Pale Yellow Yellow Urine Appearance Clear Urine Odor None Voiding Methods Toilet Data Completed and Pending Labs on day of discharge: Labs from last 24 hours 05/24/23 05/24/23 10:25 10:20 WBC 10.96 H RBC 4.14 Hgb 12.6 Hct 37.5 MCV 91 MCH 30.4 MCHC 33.6 RDW 12.4 Plt Count 234 MPV 10.9 Sodium 138 Potassium 3.8 Chloride 104 Carbon Dioxide 23.2 Anion Gap 10.8 BUN 6 L Creatinine 0.6 Est GFR (CKD-EPI 2020) 118.49 Glucose 155 H Calcium 9.0 Total Bilirubin 0.3 AST 23 ALT 31 Alkaline Phosphatase 140 H Total Protein 6.8 Albumin 2.5 L Ur Random Creatinine < 13.00 U Random Total Protein < 6.0 U [place] Prot/Creat Ratio PFSH All Active Problems (Updated 05/21/23 @ 12:08 by Olamide Simons CNM) Encounter for induction of labor (Acute) Family history of hypertension (Acute) Chronic hypertension affecting (Acute) Former smoker (Acute) Advanced maternal age (AMA) in (Acute) (Acute) Medical History (Updated 05/21/23 @ 12:08 by Olamide Simons CNM) Elevated BP without diagnosis of hypertension Social History (Updated 11/05/22 @ 14:59 by Kristen Ang NP) Smoking/Tobacco Use Status: Never Smoking risk assessment performed?: Yes Alcohol Intake: never Substance use type: does not use Housing: apartment Female Reproductive History Menstrual control method: none History History 1 Para 0 Hx # Term Pregnancies 0 Multiple births 0 Hx # Pregnancies 0 Ectopic pregnancies 0 AB induced 0 Hx Number of Living Children 0 AB spontaneous 0 Time Spent with Patient Time Spent with Patient: <45 minutes Time was spent: preparing to see the patient(eg.review tests), ordering medications,tests, procedures, referring, communicating with other health auto care center manager and counseling the patient
== END 2023-05-24 17:17 | disposition left against medical advice (07) | DRG 833 ==
LOC: OBS 11:09
PROVIDERS: Advanced Practice Midwife; Admitting Provider Advanced Practice Midwife; Visit Provider Advanced Practice Midwife
DX: Z82.49 Family history of ischemic heart disease and other diseases of the circulatory system; O10.913 Unspecified pre-existing hypertension complicating pregnancy, third trimester; Z3A.40 40 weeks gestation of pregnancy; O61.0 Failed medical induction of labor; O61.1 Failed instrumental induction of labor; O09.523 Supervision of elderly multigravida, third trimester
CPT/HCPCS: 59200; 36415; 80053; 85027; 86850; 86900; 86901; 82565; 84156; 84550; J1920; J3490

== ENCOUNTER 2023-05-25 11:52 | Outpatient (CLI) | payer MEDICAID, SELFPAY ==
[2023-05-25 12:23] VITALS: BP 139/76; PULSE 77
[2023-05-25 13:24] VITALS: BP 149/74; PULSE 68
--- NOTE | 2023-05-25 13:58 | W.OBNST ---
Date of service: 05/25/23 Time of Service: 13:58 NST Evaluation Reason for NST Reasons for Nonstress Test: CHRONIC HYPERTENSION and POSTDATES Gestational Age Gestational Age in Weeks and Days: 40 Weeks and 2Days Test and Monitor Explained Test/Monitor Explained: Test Explained, Monitor Explained and Patient Verbalized Understanding Vital Signs Blood Pressure: 149/74 NST Information Date on Monitor: 05/25/23 Time on Monitor: 12:15 Time off Monitor: 14:03 NST Interventions: None Contraction Frequency: none Comments: Initial 10min reactive NST followed spontaneous variable decel of FHR 10-15min NST Evaluation Patient States Movement: Present FHR Baseline: 145 Variability: Moderate 6-25 bpm Accelerations: 15x15 Decelerations: None NST Results: Questionable Note Ultrasound Done: Biophysical Profile Reason for Biophysical Profile: Equivocal NST and Hypertension. Provider that performed the study: Yancy Espinal Is this a repeat study?: No Amniotic Fluid: 2 Largest Vertical Pocket: 2.0 Muscle Tone: 2 Body Movements: 2 Breathing Movements: 2 NST Results: Questionable Total Biophysical Profile Score: 8 Coding for Biophysical Profile w/NST: Completed Exam. NST Note Note: I spoke with the pt and her partner and discussed the findings of variable decelerations of undetermined significance. BPP is reassuring. I recommended continued monitoring and discussion of findings ie; reactive NST . NST Reviewed and Verified by: Yancy Espinal
[2023-05-25 14:02] VITALS: BP 149/74
== END 2023-05-25 14:45 | disposition home or self-care (01) ==
LOC: BCD 11:55 → OBS 12:19
PROVIDERS: Visit Provider Obstetrics & Gynecology Gynecology
DX: O13.3 Gestational [pregnancy-induced] hypertension without significant proteinuria, third trimester (principal); O48.0 Post-term pregnancy; Z3A.40 40 weeks gestation of pregnancy
CPT/HCPCS: 59025

== ENCOUNTER 2023-05-26 09:42 | Outpatient (CLI) | payer MEDICAID, SELFPAY ==
[2023-05-26 12:40] VITALS: BP 129/66; PULSE 80
--- NOTE | 2023-05-26 13:08 | PDOC.NST_ITS ---
Date of service: 05/26/23 Time of Service: 13:09 NST Evaluation Reason for NST Reasons for Nonstress Test: CHRONIC HYPERTENSION and POSTDATES Gestational Age Gestational Age in Weeks and Days: 40 Weeks and 3Days Test and Monitor Explained Test/Monitor Explained: Test Explained, Monitor Explained and Patient Verbalized Understanding Vital Signs Blood Pressure: 129/66 NST Information Date on Monitor: 05/26/23 Time on Monitor: 12:21 Date off Monitor: 05/26/23 Time off Monitor: 13:09 Total Time on Monitor: 48 NST Interventions: PO Hydration Contraction Frequency: none Comments: Patient reports [place] earlier in the day. No contractions NST Evaluation Patient States Movement: Present FHR Baseline: 145 Variability: Moderate 6-25 bpm Accelerations: 15x15 Decelerations: None NST Results: Reactive Note Ultrasound Done: N/A. NST Note Note: Discussed timing of delivery with patient. She is accepting of delivery if she is not in labor in the next 72 hours. We discussed the risk of infection damage to surrounding structures including bleeding and restrictions after delivery. Patient will follow-up tomorrow on the center for repeat blood pressure check. NST Reviewed and Verified by: Yancy Espinal
[2023-05-26 13:11] VITALS: BP 129/66
== END 2023-05-26 13:10 | disposition home or self-care (01) ==
LOC: BCD 09:43 → OBS 12:26
PROVIDERS: Visit Provider Obstetrics & Gynecology Gynecology
DX: O13.3 Gestational [pregnancy-induced] hypertension without significant proteinuria, third trimester (principal); Z3A.40 40 weeks gestation of pregnancy; O48.0 Post-term pregnancy
CPT/HCPCS: 59025

== ENCOUNTER 2023-05-27 05:53 | Outpatient (CLI) | payer MEDICAID, SELFPAY ==
[2023-05-27 13:00] VITALS: BP 132/73; PULSE 84
[2023-05-27 14:24] VITALS: BP 132/73; PULSE 84; TEMP 36.4
--- NOTE | 2023-05-28 08:55 | W.OBNST ---
Date of service: 05/27/23 Time of Service: 15:00 NST Evaluation Reason for NST Reasons for Nonstress Test: CHRONIC HYPERTENSION Gestational Age Gestational Age in Weeks and Days: 40 Weeks and 4Days Test and Monitor Explained Test/Monitor Explained: Test Explained, Monitor Explained and Patient Verbalized Understanding Vital Signs Blood Pressure: 132/73 Pulse: 84 Temperature: 97.5 F Urine Results Urine Protein: Negative Urine Ketones: Negative Urine Glucose: Negative Urine Blood: Negative NST Information Time on Monitor: 12:47 Date off Monitor: 05/27/23 Time off Monitor: 14:00 NST Interventions: PO Hydration, Reposition Patient and Notify Provider Contraction Frequency: 0 NST Evaluation Patient States Movement: Present FHR Baseline: 145 Variability: Moderate 6-25 bpm Accelerations: 15x15 Decelerations: None NST Results: Reactive Note Ultrasound Done: N/A. NST Note Note: I met with the patient and her at today's visit for a discussion regarding the patient's actual TEENA. At the time of her intial dating u/s on 11/06/22 patient reported a LMP of approximately 08/23/2022 which gave her an EGA 10w4d and an TEENA of 05/30/23. The TV OB u/s performed on 11/07/23 dated her as 11w5d EGA with an TEENA of 05/23/23. That TEENA was the date that was used throughout her . Two other u/s performed in DI for morpholgy and the other for EFW noted her TEENA 05/22/23 or 05/23/23. The development of HTN during her resulted in plan for IOL at approximately 39w1d, based on the TEENA of 05/23/23. She was admitted to the on 05/21/23 and received cervical ripening with prostaglandin and richards balloon along with Oxytocin infusion. There was no active labor and minimal cervical change. She was discharged to home on 05/24/23 at her request and subsequent surveillance has been reassuring. The patient wishes to use the TEENA of 05/30/23 when planning the plans for repeat IOL. She feels that this TEENA better reflects her actual gestational age and she hopes that will factor in a successful IOL for chronic HTN. Pt has been compliant with Labetalol 200mg twice daily. She will present for cervical ripening at approximately 12 noon on 05/29/23. The plan is to administer cervical ripening and begin Oxytocin infusion on 05/30/23. NST Reviewed and Verified by: Yancy Espinal
[2023-05-28 08:58] VITALS: BP 132/73; PULSE 84; TEMP 36.4
== END 2023-05-27 14:30 ==
LOC: BCD 06:04 → OBS 12:55
PROVIDERS: Visit Provider Obstetrics & Gynecology
DX: O13.3 Gestational [pregnancy-induced] hypertension without significant proteinuria, third trimester (principal); Z3A.40 40 weeks gestation of pregnancy
CPT/HCPCS: 59025

== ENCOUNTER 2023-05-29 12:27 | Outpatient (CLI) | payer MEDICAID, SELFPAY ==
[2023-05-29 12:49] VITALS: BP 124/78; PULSE 79
[2023-05-29 14:23] LABS: HGB 12.7 g/dL (11.2-15.7); MCH 30.5 pg (27.0-33.0); MCHC 34.3 % (32.0-36.0); MCV 89 fL (80-95); Platelet Count 226 10^3/uL (130-400); RBC 4.17 10^6/uL (3.93-5.22); RDW 12.2 % (11.7-14.6); RDW-SD 39.1 fL; WBC 9.94 10^3/uL (4.4-10.8)
[2023-05-29 14:42] LABS: ALT 35 U/L (14-59); AST 28 U/L (15-37); Albumin 2.4 g/dL (3.4-5.0); Alkaline Phosphatase 143 U/L (46-116); Anion Gap 11.1 mmol/L (3-11); BUN 7 mg/dL (7-18); Bilirubin, Total 0.2 mg/dL (0.2-1.0); CO2 19.9 mmol/L (21.0-32.0); CREATININE 0.6 mg/dL (0.55-1.02); Calcium 9.3 mg/dL (8.5-10.1); Chloride 105 mmol/L (98-107); Estimated GFR 118.49 (mL/min/1.73m2); Glucose 108 mg/dL (74-106); Potassium 3.6 mmol/L (3.5-5.1); Sodium 136 mmol/L (136-145); Total Protein 6.8 g/dL (6.4-8.2); Uric Acid 5.2 mg/dL (2.6-6.0)
[2023-05-29 15:42] LABS: COMMENT (LAB VIEW ONLY) 46.05 mg/dL; PROTEIN 10.3 mg/dL; Prot/Crea Ur Ratio 0.22
--- NOTE | 2023-05-29 15:53 | W.OBNST ---
Date of service: 05/29/23 Time of Service: 13:00 NST Evaluation Reason for NST Reasons for Nonstress Test: CHRONIC HYPERTENSION and POSTDATES Gestational Age Gestational Age in Weeks and Days: 40 Weeks and 6Days Test and Monitor Explained Test/Monitor Explained: Test Explained, Monitor Explained and Patient Verbalized Understanding NST Information Date on Monitor: 05/29/23 Time on Monitor: 12:40 Date off Monitor: 05/29/23 Time off Monitor: 13:33 Total Time on Monitor: 53 NST Interventions: PO Hydration NST Evaluation Patient States Movement: Present FHR Baseline: 140 Variability: Moderate 6-25 bpm Accelerations: 15x15 Decelerations: None NST Results: Reactive Note Ultrasound Done: Biophysical Profile Reason for Biophysical Profile: Other (postdates). Provider that performed the study: Cathy Dominguez Is this a repeat study?: Yes Amniotic Fluid: 2 Largest Vertical Pocket: 3.0 Muscle Tone: 2 Body Movements: 2 Breathing Movements: 2 NST Results: Reactive Total Biophysical Profile Score: 10 Other Pertinent Findings: Other (BRUNA=10) Coding for Biophysical Profile w/NST: Completed Exam. NST Note Note: See record NST Reviewed and Verified by: Cathy Dominguez
== END 2023-05-29 14:45 | disposition home or self-care (01) ==
LOC: BCD 12:32 → OBS 12:35
PROVIDERS: Visit Provider Obstetrics & Gynecology
DX: O13.3 Gestational [pregnancy-induced] hypertension without significant proteinuria, third trimester (principal); O48.0 Post-term pregnancy; Z3A.40 40 weeks gestation of pregnancy
CPT/HCPCS: 80053; 85027; 86850; 86900; 86901; 59025; 82565; 84156; 84550

== ENCOUNTER 2023-05-31 15:24 | Inpatient (IN) | payer MEDICAID, SELFPAY ==
[2023-05-31] VITALS (40 sets, daily range): BP systolic 117–141; BP diastolic 65–77; PULSE 70–97; RESP 16; TEMP 36.7–37.1; O2SAT 98–100
--- NOTE | 2023-05-31 15:27 | HPE_ITS ---
Date of service: 05/31/23 Time of Service: 17:40 Assessment and Plan Assessment and plan (1) Chronic hypertension affecting : Status: Acute Assessment and plan: BPs currently stable - will monitor throughout induction and treat accordingly. (2) Encounter for induction of labor: Status: Acute Assessment and plan: After a thorough discussion with the patient she agrees to proceed with induction of labor today. We plan to use misoprostol overnight tonight and then reevaluate her cervix in the am. We discussed potential reasons for a CS and modes of anesthesia and pain management. Many questions were answered. OB-HPI Labor/Delivery History of Present Illness Reason for Visit: CHTN Chief Complaint: Scheduled Induction of Labor Indication for Induction: Chronic Hypertension and Post Date. TEENA Calculator Estimated Delivery Date Method Current WG Current Estimate 05/23/23 Ultrasound #1 41w 1d Other Estimates 05/30/23 LMP (Uncertain) 40w 1d Comments: Pt had been having intermittent ctxs yesterday but they have resolved. No bleeding or unusual discharge. Feeling good movement. History of Present Expected Delivery Route/Plan - CNM/ for [place] medication management FOB/ - Tiago Jimenez (first child) / GBS neg Desires tub room for labor Specific Issues/Plan 1. AMA & Nullip, advised to begin low dose ASA 2. Declines all genetic screening tests after AMA counseling 3. [place] 2 [place] [facility] [place] [facility] [place] 4. Dental problems (bleeding gums). Had teeth cleaning @ 21 wks. 5. Declines 28 wk 1 hr glucola, will do 2 wks of QID home testing instead: all nml 6. Isolated BP elevation noted @ 23 wks, prot/creat ratio 01/25 unable to calculate, CMP added to 28 wk lab 6a. At 27 wks labs nml, NST reactive, BP elevation noted in office, 137/77 in [place], recheck at next appt 6b. At 29 wks starting labetalol 100 mg PO BID, labs are nml 7. Chronic hypertension, labetalol 100 mg twice daily & close follow-up: Wkly visits w/NST. 7a. Growth ultrasound at 33 wks, EFW35% BRUNA 18.40 7b. Patient understands to anticipate labor induction after 39 weeks, before term 7c. Growth US 37 weeks - EFW 66%ile and BRUNA 11.8 cm. Review of Systems Constitutional Constitutional: Reports system reviewed and no additional complaints, except as documented Gastrointestinal Gastrointestinal: Denies nausea and Denies vomiting Genitourinary Genitourinary: Reports system reviewed and no additional complaints, except as documented Musculoskeletal Comments: No regular contractions PFSH All Active Problems (Updated 05/31/23 @ 17:37 by Cathy Dominguez MD) Encounter for induction of labor (Acute) Family history of hypertension (Acute) Chronic hypertension affecting (Acute) Former smoker (Acute) Advanced maternal age (AMA) in (Acute) (Acute) Social History (Updated 11/05/22 @ 14:59 by Kristen Ang NP) Smoking/Tobacco Use Status: Never Smoking risk assessment performed?: Yes Alcohol Intake: never Drug use: Never Substance use type: does not use Housing: apartment Do you feel safe at home: Yes Do you feel safe in your relationship?: Yes Female Reproductive History Menstrual control method: none History History 1 Para 0 Hx # Term Pregnancies 0 Multiple births 0 Hx # Pregnancies 0 Ectopic pregnancies 0 AB induced 0 Hx Number of Living Children 0 AB spontaneous 0 Meds Allergies and Home Medications Allergies Allergy/AdvReac Type Severity Reaction Status Date / Time No Known Allergies Allergy Unverified 05/17/23 16:35 Home Medications Medication Instructions Recorded Confirmed Type vits no.126-ferrous fum tab PO DAILY 11/05/22 05/29/23 History 28 mg iron-folic acid 800 mcg tablet (Classic ) aspirin 81 mg tablet,delayed 81 mg PO DAILY #90 tabs 11/22/22 05/29/23 Rx release alcohol swabs 1 pad topical QID #100 ea 01/25/23 05/29/23 Rx blood sugar diagnostic (FreeStyle #50 ea 01/25/23 05/29/23 Rx Lite Strips) blood-glucose meter (FreeStyle #1 ea 01/25/23 05/29/23 Rx Lite Meter kit) lancets 28 gauge (FreeStyle #100 ea 01/25/23 05/29/23 Rx Lancets) labetalol 200 mg tablet 200 mg PO BID #30 tabs 05/24/23 05/29/23 Rx Exam Physical Exam Vital signs: Pulse BP 73 130/77 05/31/23 12:54 05/31/23 12:54 Vital Signs Reviewed: Yes Detailed Labor and Delivery Exam Dilation: 2 Effacement (%): 60 station: -3 Cervix position: mid Consistency: soft Mota Score: Cervical Points Exam 0 1 2 3 Dilation Closed 1-2cm 3-4 cm 5-6cm Effacement 0-30% 40-50% 60-70% 80% Consistency Firm Medium Soft Station -3 -2 -1,0 +1,+2 Position Posterior Mid Anterior Fetus A Monitor Accelerations: 15 X 15 Monitor Decelerations: None Variability: Moderate (6-25 BPM) Categories: Category I Assessment Note: NST not originally reactive x1hr so BPP was done with 6/8 (-2 for breathing) Detailed HEENT Exam Head: Present normocephalic and atraumatic Detailed Abdominal Exam Comments: gravid, nontender Detailed Neurological Exam Neurological: Present alert, oriented X3 and CN II-XII intact DetailedPsychiatric Exam Psychiatric: Present normal affect, normal thought process and cooperative Results Results Group Beta Strep: Negative Blood Type: O+ Rubella Status: Immune Varicella Immunity: Immune Abnormal Lab Findings: Normal PEC labs 05/29/23 Risk Assessment Risk for Shoulder Dystocia Historical/Initial OB: NEGATIVE FOR: Pelvic Abnormality, Pre- BMI>30, Previous Shoulder Dystocia or Previous Macrosomia 36 Weeks: NEGATIVE FOR: Current Gestational DM, EFW>4500gms or Maternal Weight Gain>40lbs 40 Weeks: NEGATIVE FOR: EFW> 4500 gms, Maternal Weight Gain >40lb or Post Dates Delivery Plan @ 36wks: IOL in 39th week Risk for Pre-Eclampsia Date Initiated/Initials: @ 14 wks, to begin low dose ASA. JK Yes, if one or more: NEGATIVE FOR: Hx Pre-E/Gest HTN, Chronic HTN, Multiple Gestation, Pre-gestational DM, Renal Disease, Systemic Lupus or APA Syndrome Yes, if 2 or more: POSITIVE FOR: Nulliparity and Age>= 35 yrs; NEGATIVE FOR: >10yr btwn pregnancies, BMI>30, ethinicty, Mother/Sister w/ Pre-E or Previous IUGR Risk for Post- Hemorrhage Initial: NEGATIVE FOR: Multiple Gestation, Previous PPH, Known Clotting Deficiency, Grand Multiparity or Anticoagulation 36 Weeks: NEGATIVE FOR: Anemia, hgb<10, Low platelets(thrombocytopenia), Gestational HTN or Pre-E, Polyhydraminios or EFW>4500gms 40 Weeks: POSITIVE FOR: Gestation HTN or Pre-E; NEGATIVE FOR: Anemia, hgb<10, Low platelets (thrombocytopenia), Polyhydraminios or EFW>4500gms Risks Reviewed Risks Reviewed Upon Admission: Yes (PPH/retained placent)
[2023-05-31] MEDS: miSOPROStol 25 MCG TAB PO ×2 (16:05→20:12)
--- NOTE | 2023-05-31 17:09 | W.OBNST ---
Date of service: 05/31/23 Time of Service: 13:00 NST Evaluation Reason for NST Reasons for Nonstress Test: GESTATIONAL HYPERTENSION Reason for NST Other: postdates Gestational Age Gestational Age in Weeks and Days: 41 Weeks and 1Days Test and Monitor Explained Test/Monitor Explained: Test Explained and Monitor Explained Vital Signs Temperature: 98.1 F Urine Results Urine Protein: Negative Urine Ketones: Negative Urine Glucose: Negative Urine Blood: Positive NST Information Date on Monitor: 05/31/23 Time on Monitor: 12:40 NST Evaluation Patient States Movement: Present FHR Baseline: 145 Variability: Moderate 6-25 bpm Accelerations: 10x10 Decelerations: None NST Results: Questionable Note Ultrasound Done: Biophysical Profile Reason for Biophysical Profile: Non Reactive NST. Provider that performed the study: Cathy Dominguez Amniotic Fluid: 2 Muscle Tone: 2 Body Movements: 2 Breathing Movements: 0 NST Results: Questionable Total Biophysical Profile Score: 6 Coding for Biophysical Profile w/NST: Completed Exam. NST Note Note: NST initially not reactive after >1hr so BPP ordered. Soon after 2 accelerations were noted so the NST became reactive. No breathing movements seen after 35min. See admission note for details. NST Reviewed and Verified by: Cathy Dominguez
--- NOTE | 2023-05-31 19:45 | NUR.NOTE ---
Nursing Note: 1940: Call placed to Dr. Weiss regarding patient's home medication on Labetolol 200mg not being on mar, telephone order per provider to order labetolol 200mg po bid, hold if BP <120/70. Order read back to provider and confirmed.
[2023-06-01] VITALS (37 sets, daily range): BP systolic 119–153; BP diastolic 59–87; PULSE 65–139; RESP 12–16; TEMP 36.5–36.9; O2SAT 99–100
[2023-06-01] MEDS: miSOPROStol 25 MCG TAB PO ×2 (00:07→04:04)
[2023-06-01] MEDS: Labetalol 100 MG TAB 200 MG PO ×2 (08:48→20:19)
--- NOTE | 2023-06-01 09:24 | W.PM.OBNL1 ---
Date of service: 06/01/23 Time of Service: 08:45 Pelvic Exam Dilation: 2.5 Effacement (%): 60 station: -3 Cervix Position: anterior Consistency: soft Fetus A Heart Rate Baseline: 140 Variability: Moderate (6-25 BPM) Categories: Category I Accelerations: 15 X 15 Decelerations: None Assessment and Plan Assessment and plan (1) Chronic hypertension affecting : Status: Acute Assessment and plan: BPS stable - will hold labetalol for BP <120 or <80. Labs to be drawn this am. (2) Encounter for induction of labor: Status: Acute Assessment and plan: Slight cervical change s/p misoprostol x4. Will switch to pitocin augmentation. Objective Temp Pulse Resp BP Pulse Ox 98.4 F 78 12 135/87 99 06/01/23 08:40 06/01/23 08:40 06/01/23 08:40 06/01/23 08:40 05/31/23 23:43 Vital Signs Reviewed: Yes Subjective Interval history since last seen: Pt feeling a little crampy but was able to get some sleep. She received 4 doses of misoprostol. Her labetalol dose was held last night because her BP was on the low side.
[2023-06-01 09:33] LABS: HCT 38.7 % (36.0-46.0); HGB 13.2 g/dL (11.2-15.7); MCH 30.4 pg (27.0-33.0); MCHC 34.1 % (32.0-36.0); MCV 89 fL (80-95); MPV 11.3 fL (8.0-11.0); Platelet Count 232 10^3/uL (130-400); RBC 4.34 10^6/uL (3.93-5.22); RDW 12.1 % (11.7-14.6); RDW-SD 39.7 fL; WBC 8.66 10^3/uL (4.4-10.8)
[2023-06-01 09:50] LABS: ALT 35 U/L (14-59); AST 35 U/L (15-37); Albumin 2.6 g/dL (3.4-5.0); Alkaline Phosphatase 158 U/L (46-116); BUN 7 mg/dL (7-18); Bilirubin, Total 0.4 mg/dL (0.2-1.0); CREATININE 0.6 mg/dL (0.55-1.02); Calcium 8.8 mg/dL (8.5-10.1); Chloride 103 mmol/L (98-107); Estimated GFR 118.49 (mL/min/1.73m2); Glucose 83 mg/dL (74-106); Potassium 3.8 mmol/L (3.5-5.1); Sodium 135 mmol/L (136-145)
[2023-06-01] MEDS: Normal Saline Flush 10 ML SYR IVP (10:49)
[2023-06-01] MEDS: Lactated Ringers 1,000 ML 125 ML IV ×2 (10:50→18:09)
[2023-06-01] MEDS: Oxytocin/Normal Saline 30 UNIT/500 ML BAG 2 UNITS IV (10:51)
--- NOTE | 2023-06-01 18:56 | W.PM.OBNL1 ---
Date of service: 06/01/23 Time of Service: 16:00 Fetus A Heart Rate Baseline: 140 Variability: Moderate (6-25 BPM) Accelerations: 15 X 15 Decelerations: Variable (occasional) Assessment Note: Mostly category 1 with occasional cat 2 due to small variable decels Assessment and Plan Assessment and plan (1) Encounter for induction of labor: Status: Acute Assessment and plan: Continue to increase pitocin up to 30 as needed. Offered exam to pt but she declines at this point. (2) Chronic hypertension affecting : Status: Acute Assessment and plan: BP stable. Labs normal. Objective Abnormal lab results 06/01/23 Range/Units 09:25 MPV 11.3 H (8.0-11.0) fL Sodium 135 L (136-145) mmol/L Alkaline Phosphatase 158 H (46-116) U/L Albumin 2.6 L (3.4-5.0) g/dL Temp Pulse Resp BP Pulse Ox 97.7 F 69 16 135/74 99 06/01/23 17:01 06/01/23 17:01 06/01/23 17:01 06/01/23 17:01 06/01/23 17:01 Laboratory Results WBC 8.66 10^3/uL (4.4-10.8) 06/01/23 09:25 RBC 4.34 10^6/uL (3.93-5.22) 06/01/23 09:25 Hgb 13.2 g/dL (11.2-15.7) 06/01/23 09:25 Hct 38.7 % (36.0-46.0) 06/01/23 09:25 MCV 89 fL (80-95) 06/01/23 09:25 MCH 30.4 pg (27.0-33.0) 06/01/23 09:25 MCHC 34.1 % (32.0-36.0) 06/01/23 09:25 RDW 12.1 % (11.7-14.6) 06/01/23 09:25 Plt Count 232 10^3/uL (130-400) 06/01/23 09:25 MPV 11.3 fL (8.0-11.0) H 06/01/23 09:25 Sodium 135 mmol/L (136-145) L 06/01/23 09:25 Potassium 3.8 mmol/L (3.5-5.1) 06/01/23 09:25 Chloride 103 mmol/L (98-107) 06/01/23 09:25 Carbon Dioxide 21.0 mmol/L (21.0-32.0) 06/01/23 09:25 Anion Gap 11.0 mmol/L (3-11) 06/01/23 09:25 BUN 7 mg/dL (7-18) 06/01/23 09:25 Creatinine 0.6 mg/dL (0.55-1.02) 06/01/23 09:25 Est GFR (CKD-EPI 2020) 118.49 (mL/min/1.73m2) 06/01/23 09:25 Glucose 83 mg/dL (74-106) 06/01/23 09:25 Calcium 8.8 mg/dL (8.5-10.1) 06/01/23 09:25 Total Bilirubin 0.4 mg/dL (0.2-1.0) 06/01/23 09:25 AST 35 U/L (15-37) 06/01/23 09:25 ALT 35 U/L (14-59) 06/01/23 09:25 Alkaline Phosphatase 158 U/L (46-116) H 06/01/23 09:25 Total Protein 7.0 g/dL (6.4-8.2) 06/01/23 09:25 Albumin 2.6 g/dL (3.4-5.0) L 06/01/23 09:25 Patient ABO/Rh O Positive 06/01/23 09:25 Antibody Screen NEGATIVE 06/01/23 09:25 Subjective Interval history since last seen: Pt is a little bit uncomfortable with contractions. Pit at 20. Results Hemoglobin/Hematocrit: Hgb 13.2 g/dL (11.2-15.7) 06/01/23 09:25 Hct 38.7 % (36.0-46.0) 06/01/23 09:25 Abnormal Lab Findings: Abnormal Labs 06/01/23 09:25 MPV 11.3 H Sodium 135 L Alkaline Phosphatase 158 H Albumin 2.6 L
--- NOTE | 2023-06-01 21:30 | W.PM.OBNL1 ---
Date of service: 06/01/23 Time of Service: 20:15 Pelvic Exam Dilation: 3 Effacement (%): 60 station: -3 Cervix Position: anterior Consistency: soft Comments: head palpated only anteriorly. Bulging bag felt posteriorly. Contractions Contraction Frequency(min): q2-3min Fetus A Heart Rate Baseline: 140 Variability: Moderate (6-25 BPM) Accelerations: 15 X 15 Decelerations: None Assessment Note: No recent variable but there have been occasional small variables throughout the day. Assessment and Plan Assessment and plan (1) Encounter for induction of labor: Status: Acute Assessment and plan: Pt getting slightly more uncomfortable but the head is not descending into the pelvis. Pt will try various position changes and continue with pitocin at 22 (2) Chronic hypertension affecting : Status: Acute Assessment and plan: Last BP taken right before her Labetalol was due Objective Abnormal lab results 06/01/23 Range/Units 09:25 MPV 11.3 H (8.0-11.0) fL Sodium 135 L (136-145) mmol/L Alkaline Phosphatase 158 H (46-116) U/L Albumin 2.6 L (3.4-5.0) g/dL Temp Pulse Resp BP Pulse Ox 97.7 F 77 16 153/81 H 99 06/01/23 17:01 06/01/23 20:10 06/01/23 17:01 06/01/23 20:10 06/01/23 17:01 Laboratory Results WBC 8.66 10^3/uL (4.4-10.8) 06/01/23 09:25 RBC 4.34 10^6/uL (3.93-5.22) 06/01/23 09:25 Hgb 13.2 g/dL (11.2-15.7) 06/01/23 09:25 Hct 38.7 % (36.0-46.0) 06/01/23 09:25 MCV 89 fL (80-95) 06/01/23 09:25 MCH 30.4 pg (27.0-33.0) 06/01/23 09:25 MCHC 34.1 % (32.0-36.0) 06/01/23 09:25 RDW 12.1 % (11.7-14.6) 06/01/23 09:25 Plt Count 232 10^3/uL (130-400) 06/01/23 09:25 MPV 11.3 fL (8.0-11.0) H 06/01/23 09:25 Sodium 135 mmol/L (136-145) L 06/01/23 09:25 Potassium 3.8 mmol/L (3.5-5.1) 06/01/23 09:25 Chloride 103 mmol/L (98-107) 06/01/23 09:25 Carbon Dioxide 21.0 mmol/L (21.0-32.0) 06/01/23 09:25 Anion Gap 11.0 mmol/L (3-11) 06/01/23 09:25 BUN 7 mg/dL (7-18) 06/01/23 09:25 Creatinine 0.6 mg/dL (0.55-1.02) 06/01/23 09:25 Est GFR (CKD-EPI 2020) 118.49 (mL/min/1.73m2) 06/01/23 09:25 Glucose 83 mg/dL (74-106) 06/01/23 09:25 Calcium 8.8 mg/dL (8.5-10.1) 06/01/23 09:25 Total Bilirubin 0.4 mg/dL (0.2-1.0) 06/01/23 09:25 AST 35 U/L (15-37) 06/01/23 09:25 ALT 35 U/L (14-59) 06/01/23 09:25 Alkaline Phosphatase 158 U/L (46-116) H 06/01/23 09:25 Total Protein 7.0 g/dL (6.4-8.2) 06/01/23 09:25 Albumin 2.6 g/dL (3.4-5.0) L 06/01/23 09:25 Patient ABO/Rh O Positive 06/01/23:25 Antibody Screen NEGATIVE 06/01/23:25 Subjective Interval history since last seen: Pt is a little bit more uncomfortable with contractions but still breathing through them easily Results Hemoglobin/Hematocrit: Hgb 13.2 g/dL (11.2-15.7) 06/01/23 09:25 Hct 38.7 % (36.0-46.0) 02/03/24 09:25 Abnormal Lab Findings: Abnormal Labs 06/01/23 09:25 MPV 11.3 H Sodium 135 L Alkaline Phosphatase 158 H Albumin 2.6 L
[2023-06-02] VITALS (14 sets, daily range): BP systolic 98–153; BP diastolic 8–122; PULSE 12–86; RESP 12–98; TEMP 36.4–37.5; O2SAT 98–99; BMI 34.2
[2023-06-02] MEDS: Lactated Ringers 1,000 ML 125 ML IV (01:42)
--- NOTE | 2023-06-02 06:58 | W.PM.OBNL1 ---
Date of service: 06/02/23 Time of Service: 06:58 Pelvic Exam Dilation: 3.5 Effacement (%): 60 station: -4 Cervix Position: mid Consistency: soft Comments: head still high in the pelvis Fetus A Heart Rate Baseline: 135 Variability: Moderate (6-25 BPM) Categories: Category I Accelerations: 15 X 15 Decelerations: None Amniotic Membrane Status: Intact Assessment Note: Unable to perform amniotomy due to head not being engaged Assessment and Plan Assessment and plan (1) Encounter for induction of labor: Status: Acute Assessment and plan: Pt is 41.3wks GA with CHTN s/p multiple efforts at induction of labor. She underwent cervical ripening x4 days last week. She then returned 2 days ago to have cervical ripening again followed by pitocin x20hrs. She did dilate to 3.5cm but the head remained high in the pelvis with inability to perform amniotomy due to this. Pt underwent many position changes throughout her time on pitocin. We discussed that at this point in time I recommend a delivery and she agrees to this. She would like to wait for her partner to get here before signing the consent form and she feels she really need a nap first as well. We will plan to try to be ready to start the CS at 9:30. All questions were answered. (2) Chronic hypertension affecting : Status: Acute Assessment and plan: BPs remain stable on Labetalol 200mg PO BID Objective Abnormal lab results 06/01/23 Range/Units 09:25 MPV 11.3 H (8.0-11.0) fL Sodium 135 L (136-145) mmol/L Alkaline Phosphatase 158 H (46-116) U/L Albumin 2.6 L (3.4-5.0) g/dL Temp Pulse Resp BP Pulse Ox 97.7 F 64 16 134/61 99 06/02/23 03:45 06/02/23 04:20 06/01/23 17:01 06/02/23 04:20 06/01/23 17:01 Laboratory Results WBC 8.66 10^3/uL (4.4-10.8) 06/01/23 09:25 RBC 4.34 10^6/uL (3.93-5.22) 06/01/23 09:25 Hgb 13.2 g/dL (11.2-15.7) 06/01/23 09:25 Hct 38.7 % (36.0-46.0) 06/01/23 09:25 MCV 89 fL (80-95) 06/01/23 09:25 MCH 30.4 pg (27.0-33.0) 06/01/23 09:25 MCHC 34.1 % (32.0-36.0) 06/01/23 09:25 RDW 12.1 % (11.7-14.6) 06/01/23 09:25 Plt Count 232 10^3/uL (130-400) 06/01/23 09:25 MPV 11.3 fL (8.0-11.0) H 06/01/23 09:25 Sodium 135 mmol/L (136-145) L 06/01/23 09:25 Potassium 3.8 mmol/L (3.5-5.1) 06/01/23 09:25 Chloride 103 mmol/L (98-107) 06/01/23 09:25 Carbon Dioxide 21.0 mmol/L (21.0-32.0) 06/01/23 09:25 Anion Gap 11.0 mmol/L (3-11) 06/01/23 09:25 BUN 7 mg/dL (7-18) 06/01/23 09:25 Creatinine 0.6 mg/dL (0.55-1.02) 06/01/23 09:25 Est GFR (CKD-EPI 2020) 118.49 (mL/min/1.73m2) 06/01/23 09:25 Glucose 83 mg/dL (74-106) 06/01/23 09:25 Calcium 8.8 mg/dL (8.5-10.1) 06/01/23 09:25 Total Bilirubin 0.4 mg/dL (0.2-1.0) 06/01/23 09:25 AST 35 U/L (15-37) 06/01/23 09:25 ALT 35 U/L (14-59) 06/01/23 09:25 Alkaline Phosphatase 158 U/L (46-116) H 06/01/23 09:25 Total Protein 7.0 g/dL (6.4-8.2) 06/01/23 09:25 Albumin 2.6 g/dL (3.4-5.0) L 06/01/23 09:25 Patient ABO/Rh O Positive 06/01/23: Antibody Screen NEGATIVE 06/01/23: Subjective Interval history since last seen: Pt continues to have mild discomfort with contractions and felt more pelvic pressure when standing. She rested some but wasn't able to sleep overnight. Results Hemoglobin/Hematocrit: Hgb 13.2 g/dL (11.2-15.7) 06/01/23 09: Hct 38.7 % (36.0-46.0) 06/01/23:25 Abnormal Lab Findings: Abnormal Labs 06/01/23: MPV 11.3 H Sodium 135 L Alkaline Phosphatase 158 H Albumin 2.6 L
--- NOTE | 2023-06-02 08:06 | ANES.PREOP_ITS ---
General Info Date of Service Date Performed: 06/02/23 Height: 5 ft 9 in Weight: 105.233 kg Body Mass Index (BMI): 34.2 Surgical Procedure: C section for unsuccessful induction of labor Meds Allergies and Home Medications Allergies Allergy/AdvReac Type Severity Reaction Status Date / Time No Known Allergies Allergy Unverified 05/31/23 18:28 Home Medication Medication Instructions Recorded vits no.126-ferrous fum 1 tab PO DAILY 11/05/22 28 mg iron-folic acid 800 mcg tablet (Classic ) aspirin 81 mg tablet,delayed 81 mg PO DAILY #90 tabs 11/22/22 release labetalol 200 mg tablet 200 mg PO BID #30 tabs 05/24/23 Current Visit Medications: Current Medications Generic Name Dose Route Start Last Admin Trade Name Freq PRN Reason Stop Dose Admin Citric Acid/Sodium Citrate 30 ml 06/02/23 08:00 Sodium Citrate 30 Ml Cup PO PREOP TAD Ringer's Solution 1,000 mls @ 200 mls/hr 05/31/23 15:30 IV INFUSION TAD Ringer's Solution 1,000 mls @ 125 mls/hr 06/01/23 09:30 06/02/23 01:42 IV 125 mls/hr INFUSION TAD Administration Oxytocin/Sodium Chloride 30 unit in 500 mls @ 2 mls/hr 06/01/23 09:30 06/02/23 06:49 Pitocin/Normal Saline IV 0 milliunits/min INFUSION TAD 0 mls/hr Titration Protocol 2 MILLIUNITS/MIN Cefazolin Sodium/Dextrose 2 gm in 50 mls @ 100 mls/hr 06/02/23 07:15 Ancef Duplex IVPB PREOP TAD Azithromycin 500 mg/ Sodium 250 mls @ 250 mls/hr 06/02/23 07:15 Chloride IVPB PREOP TAD Ringer's Solution 1,000 mls @ 200 mls/hr 06/02/23 07:15 IV INFUSION TAD IV Miscellaneous Supplies 1 each 05/31/23 15:30 Iv Access IV DIRECTED TAD Labetalol HCl 200 mg 05/31/23 20:00 06/01/23 20:19 Labetalol 100 Mg Tab PO 200 mg BID TAD Administration Sodium Chloride 0 ml 05/31/23 15:24 Normal Saline Flush 10 Ml Syr IVP PRN PRN Sodium Chloride 0 ml 05/31/23 20:00 06/01/23 10:49 Normal Saline Flush 10 Ml Syr IVP 20 ml BID TAD Administration Sodium Chloride 0 ml 05/31/23 15:24 Normal Saline 10 Ml Vial IJ DIRECTED PRN Terbutaline Sulfate 0.25 mg 05/31/23 15:24 Terbutaline 1 Mg/Ml Vial SC PRN PRN PFSH Active Problems Active Problems: Problem Status Onset Code Encounter for induction of labor Z34.90 Chronic hypertension affecting O10.919 Advanced maternal age (AMA) in Z34.90 Medical History Medical History Family history of hypertension Former smoker Tobacco Smoking/Tobacco Use Status: Former Tobacco Use Alcohol Alcohol Intake: never Substance Use Substance use: Never Substance use type: does not use Prental History History 2 1 Para 0 Hx # Term Pregnancies 0 Multiple births 0 Hx # Pregnancies 0 Ectopic pregnancies 0 AB induced 0 Hx Number of Living Children 0 AB spontaneous 0 Vital Signs and Lab Results Vital Signs Most Recent Vital Signs in EMR: Most Recent Vital Signs Temp Pulse Resp BP Pulse Ox 36.5 C 64 16 134/61 99 06/02/23 03:45 06/02/23 04:20 06/01/23 17:01 06/02/23 04:20 06/01/23 17:01 Lab Results 06/01/23 09:25 06/01/23 09:25 Blood Type / Crossmatch: 2 Patient ABO/Rh O Positive 06/01/23 Antibody Screen NEGATIVE 06/01/23 Complete Blood Count: 2 White Blood Count 8.66 10^3/uL (4.4-10.8) 06/01/23 09:25 Red Blood Count 4.34 10^6/uL (3.93-5.22) 06/01/23 09:25 Hemoglobin 13.2 g/dL (11.2-15.7) 06/01/23 09:25 Hematocrit 38.7 % (36.0-46.0) 06/01/23 09:25 Platelet Count 232 10^3/uL (130-400) 06/01/23 09:25 Complete Metabolic Panel: 2 Sodium 135 mmol/L (136-145) L 06/01/23 09:25 Potassium 3.8 mmol/L (3.5-5.1) 06/01/23 09:25 Chloride 103 mmol/L (98-107) 06/01/23 09:25 Carbon Dioxide 21.0 mmol/L (21.0-32.0) 06/01/23 09:25 BUN 7 mg/dL (7-18) 06/01/23 09:25 Creatinine 0.6 mg/dL (0.55-1.02) 06/01/23 09:25 Est GFR (CKD-EPI 2020) 118.49 (mL/min/1.73m2) 06/01/23 09:25 Calcium 8.8 mg/dL (8.5-10.1) 06/01/23 09:25 Albumin 2.6 g/dL (3.4-5.0) L 06/01/23 09:25 Glucose 83 mg/dL (74-106) 06/01/23 09:25 Liver Function Panel: 2 Alanine Aminotransferase (ALT/SGPT) 35 U/L (14-59) 06/01/23 09: 25 Aspartate Amino Transf (AST/SGOT) 35 U/L (15-37) 06/01/23 09:25 Coagulation Panel: 2 No Data to Display Cardiac Panel: 2 No Data to Display Arterial Blood Gas: 2 No Data to Display Venous Blood Gas: 2 No Data to Display Pancreas Panel: 2 No Data to Display Thyroid Panel: 2 No Data to Display Infectious Disease: 2 No Data to Display Blood Cultures: 2 No Data to Display Toxicology Panel: 2 No Data to Display Panel: 2 No Data to Display Anesthesia Assessment and Plan Anesthesia History Personal History: No History of Anesthesia Complications Family History: No Family History of Anesthesia Complications Exercise Tolerance Exercise Tolerance: Metabolic Equivalents>4 Pertinent Negatives Pertinent Negatives: No Major Cardiovascular Symptoms or Complaints, No Major Pulmonary Symptoms or Complaints and No History of CVA/TIA Cardiac & Pulmonary Exam Cardiac Exam: Normal S1/S2 Heart Sounds Pulmonary Exam: Clear Bilateral Breath Sounds Cardiac and Pulmonary Comment:: Hypertension in Implantable Cardiac Device Does patient have a Pacemaker or an ICD?: No Airway Exam Known Difficult Airway: No Mallampati Class: 3 Mouth Opening: Normal (> 3cm) Thyromental Distance: Greater than 3 cm Neck Range of Motion: Full ROM Neck Circumference: Normal Teeth Condition: Normal Dentition (Gum disease) ASA Classification ASA Score: ASA 2 Emergency Case?: No NPO Status NPO Status: NPO Clears >2 hours, Solids >8 hours Status Status: Confirmed Anesthesia Plan Resuscitation Status: Full Code Anesthesia Technique: Spinal Anesthesia Airway Planned: Natural Airway Monitors Used: Standard Monitors Preoperative Comments:: Last labetolol dose @ 1999 on 06/01/23 Unsuccessful induction of labor x 2
[2023-06-02] MEDS: Normal Saline Flush 10 ML SYR IVP ×2 (08:31→22:00)
[2023-06-02] MEDS: AZITHROMYCIN 500 MG in Normal Saline 250 ML 250 MG IVPB (08:32)
[2023-06-02] MEDS: Sodium Citrate 30 ML CUP PO (08:34)
[2023-06-02] MEDS: ceFAZolin 2 GM/50 ML BAG IVPB (09:31)
[2023-06-02] MEDS: Bupivacaine 0.25% Pres-Free 30 ML VIAL (09:54)
--- NOTE | 2023-06-02 10:13 | PLAC_PTH ---
PATIENT: Lizabeth TRIPATHI LOC: OBS U#:[id number] AGE/SX: 37/F ROOM: OBS.304 RE05/31/[address]: Cathy Dominguez MD : 1985 BED: A DIS: 06/04/2023 SPEC #: [id number] RECD: 06/03/23 11:18 STATUS: MARTIN REQ #: [id number] JOSE RAFAEL: 06/02/23 10:[address]: Cathy Dominguez DEPT: Surgical Specimen RECD BY: Tamiko aBbb ENTERED: 06/03/23 11:19 SP TYPE: PLAC OTHR DR: Lisa Arellano MD Unknown,Unknown Tissues: 1 - PLACENTA (3RD TRIMESTER) Procedures: GROSS AND MICRO LEVEL 5 Comments: [id number]
--- NOTE | 2023-06-02 11:16 | ROE_ITS ---
Date of service: 06/02/23 Time of Service: 09:30 Operative Note Operative Note DATE OF PROCEDURE: 06/02/23 PRE-OP DIAGNOSIS: Failed induction of labor POST-OP DIAGNOSIS: same PROCEDURE: Primary low transverse section SURGEON: Cathy Dominguez ASSISTING SURGEON: Leandra Chowdary Refer to Anesthesia Record ESTIMATED BLOOD LOSS: 600 COMPLICATIONS: None Patient was transported to: floor Patient's condition: stable Indications: Pt was 41.3wks GA s/p multiple days of induction with adequate cervical ripening and s/p 20hrs of pitocin without descent into the pelvis. Findings: Male , Apgars 9/9, head not engaged in the pelvis, slightly to maternal right with his left hand up over his head. Normal appearing uterus, ovaries and tubes. Procedure Description: After informed consent was signed the patient was taken to the operating room. She was given spinal anesthesia, SCDs were placed on her legs and a richards catheter was introduced into her bladder. The heart rate was checked and was normal. She underwent abdominal and vaginal prep and was draped in the dorsal supine position with a leftward tilt. The patient was tested and spinal anesthesia was found to be adequate. A time out was performed. The skin was injected with bupivocaine along the length of the planned incision.A skin incision was made with the scalpel and carried down to the underlying layer of fascia with blunt dissection. The fascia was incised on either side of the midline and the fascial incision extended laterally with a combination of sharp and blunt dissection. The inferior edge of the fascia was grasped with bridget clamps and tented up and dissected down with a combination of sharp and blunt dissection. Then the superior edge of the fascial incision was grasped with bridget clamps and tented up and dissected down with a combination of sharp and blunt dissection. The rectus muscles were in the midline and the peritoneum was entered bluntly. The peritoneal incision was extended laterally with blunt dissection. The bladder blade was inserted. A transverse incision was made in the lower uterine segment with the scalpel. The incision was extended superiorly and inferiorly with blunt pressure. The infants head was difficult to bring up in to the incision but was eventually delivered with fundal pressure followed by the shoulders and the rest of the body. He cried spontaneously and had good tone. The cord was milked toward the baby and after 1min it was clamped x2 and cut. The baby was handed to the nutrition representative. Cord blood was collected. The placenta delivered with fundal massage and gentle cord traction and had a small portion that remained adherent to the lower posterior uterine wall. This portion was easily removed manually. The uterus was exteriorized and cleared of clots and debris. The uterine incision was closed with 0-vicryl in a running locked fashion with a second layer of suture imbricating the first. Good hemostasis was noted. The uterus was placed back into the abdominal cavity. Clots were cleared from the peritoneal cavity with lap sponges. The incision was inspected once again and good hemostasis was noted. There was good hemostasis of the rectus muscles. The fascia was closed with 0-v icryl in a running unlocked fashion. The subcuticular layer was irrigated and closed with interrupted sutures of 3-0 vicryl. The skin was closed with 4-0 vicryl in a running subcuticular fashion. The incision was cleaned. Mastisol and steristrips were placed. A Mepilex dressing was placed. The fundus was palpated to be firm. The patient was moved to the stretcher and taken to the recovery room in stable condition.
[2023-06-02] MEDS: Lactated Ringers 1,000 ML 120 ML IV (11:47)
[2023-06-02] MEDS: Ketorolac 30 MG/ML VIAL IVP ×2 (16:09→22:00)
[2023-06-02] MEDS: Docusate Sodium 100 MG CAP PO (16:10)
[2023-06-02] MEDS: Normal Saline Flush 10 ML SYR (16:11)
[2023-06-02] MEDS: Labetalol 100 MG TAB 200 MG PO (20:07)
[2023-06-03 01:36] VITALS: BP 147/94; PULSE 70; RESP 18; TEMP 36.7
[2023-06-03] MEDS: Ketorolac 30 MG/ML VIAL IVP (03:45)
[2023-06-03] MEDS: Normal Saline Flush 10 ML SYR IVP (03:46)
[2023-06-03 06:18] VITALS: BP 137/79; PULSE 56; RESP 18
[2023-06-03 07:16] LABS: Abs Immature Grans 0.11 10^3/uL (0.0-0.06); Absolute Basophil Count 0.04 10^3/uL (0.0-0.2); Absolute Lymphocyte Count 1.49 10^3/uL (1.2-3.4); Absolute Monocyte Count 0.78 10^3/uL (0.1-0.8); Absolute Neutrophil Count 10.66 10^3/uL (1.2-6.7); Basophils % 0.3; Eosinophils % 1.1; HCT 30.8 % (36.0-46.0); HGB 10.7 g/dL (11.2-15.7); Immature Grans % 0.8; Lymphocytes % 11.3; MCH 30.7 pg (27.0-33.0); MCHC 34.7 % (32.0-36.0); MCV 88 fL (80-95); MPV 11.3 fL (8.0-11.0); Monocytes % 5.9; Neutrophils % 80.6; Platelet Count 189 10^3/uL (130-400); RBC 3.49 10^6/uL (3.93-5.22); RDW 12.1 % (11.7-14.6); RDW-SD 38.8 fL; WBC 13.22 10^3/uL (4.4-10.8)
[2023-06-03 07:19] LABS: Absolute Eosinophil Count 0.15 10^3/uL (0.0-0.7)
[2023-06-03 07:31] LABS: ALT 35 U/L (14-59); AST 34 U/L (15-37); Albumin 2.2 g/dL (3.4-5.0); Alkaline Phosphatase 120 U/L (46-116); Anion Gap 8.2 mmol/L (3-11); BUN 8 mg/dL (7-18); Bilirubin, Total 0.3 mg/dL (0.2-1.0); CO2 21.8 mmol/L (21.0-32.0); CREATININE 0.6 mg/dL (0.55-1.02); Calcium 8.7 mg/dL (8.5-10.1); Chloride 97 mmol/L (98-107); Estimated GFR 118.49 (mL/min/1.73m2); Glucose 75 mg/dL (74-106); Potassium 4.5 mmol/L (3.5-5.1); Sodium 127 mmol/L (136-145); Total Protein 5.9 g/dL (6.4-8.2)
[2023-06-03] MEDS: Labetalol 100 MG TAB 200 MG PO ×2 (08:22→20:53)
[2023-06-03 08:27] VITALS: BP 136/88; PULSE 67; RESP 18; TEMP 36.6
[2023-06-03] MEDS: Ibuprofen 600 MG TAB PO ×2 (10:09→16:47)
--- NOTE | 2023-06-03 12:05 | W.PM.OBPNV1 ---
Date of service: 06/03/23 Time of Service: 12:05 Assessment and Plan Assessment and plan (1) delivery delivered: Status: Acute Assessment and plan: PPD1 pLTCS after unsuccessful IOL. Pt is comfortable and breast feeding has been going well. (2) Chronic hypertension affecting : Status: Acute Assessment and plan: BP remains stable on 200mg Labetalol twice daily. Plan to continue the medication at time of discharge. Subjective Subjective Interval history: PPD1 pLTCS on 06/02/23 for unsuccessful induction of labor and gestational hypertension. Patient comments: Pain well controlled, Incisional pain and Tolerating diet baby status: Doing well, Nursing well, Rooming in and Strong Bonding Observed feeding status: Exclusively breast feeding Exam Physical Exam Vital signs: Temp Pulse Resp BP Pulse Ox 97.9 F 67 18 136/88 98 06/03/23 08:27 06/03/23 08:27 06/03/23 08:27 06/03/23 08:27 06/02/23 15:40 Vital Signs Reviewed: Yes Narrative: Pt continues to take PO Labetalol Constitutional Constitutional: no acute distress HEENT Exam HEENT Exam: Normal Neck Exam Neck Exam: Normal Respiratory Exam Respiratory Exam: Normal Cardiovascular Exam Cardiovascular Exam: Normal Abdominal Exam Abdomen: Other (incision covered with dry sterile Mepilex dressing) Fundal Exam Fundus: Below Umbilicus and Firm Rectal Exam Rectal Exam: Not Done Extremities Exam Extremity Exam: Normal Back/Spine/Pelvis Exam Back Exam: Normal Skin Exam Skin Exam: Normal Neurological Exam Neurological Exam: Normal Psychiatric Exam Psychiatric Exam: Normal Results Hemoglobin/Hematocrit: Hgb 10.7 g/dL (11.2-15.7) L D 06/03/23 06:44 Hct 30.8 % (36.0-46.0) L 06/03/23 06:44 Abnormal Lab Findings: Abnormal Labs 06/01/23 06/03/23 09:25 06:44 WBC 13.22 H RBC 3.49 L Hgb 10.7 L D Hct 30.8 L MPV 11.3 H 11.3 H Absolute Neutrophils 10.66 H Sodium 135 L 127 L Chloride 97 L Alkaline Phosphatase 158 H 120 H Total Protein 5.9 L Albumin 2.6 L 2.2 L
[2023-06-03] MEDS: Acetaminophen 325 MG TAB 650 MG PO ×2 (12:10→16:47)
--- NOTE | 2023-06-03 14:02 | W.ANESPOSTOP ---
Postoperative Evaluation Date, Time and Location Date Performed: 06/03/23 Time Performed: 14:02 Patient Location: Obstetrics Vital Signs Most Recent Imported Vital Signs: Most Recent Vital Signs Temp Pulse Resp BP Pulse Ox 36.6 C 67 18 136/88 98 06/03/23 08:27 06/03/23 08:27 06/03/23 08:27 06/03/23 08:27 06/02/23 15:40 Pain Score Most Recent Pain Score: Most Recent Pain Score Pain Level [Abdomen] 4 06/02/23 15:40 Pain Level 3 06/03/23 03:45 Assessment Mental Status: Awake (Alert & Oriented to Patient Baseline) Airway and Respiratory Function: Patent airway with normal (patient baseline) respiratory exam Cardiovascular Function: Hemodynamically Stable Hydration Status: Adequately Hydrated Nausea & Vomiting: No Nausea or Vomiting Pain: Pain is tolerable per patient Peripheral Nerve Block: Patient did not receive a nerve block Postoperative Comments:: Currently sleeping. No issues, doing well.
[2023-06-03 15:30] VITALS: BP 132/78; PULSE 84; TEMP 36.8
[2023-06-03 20:30] VITALS: BP 131/74; PULSE 69; RESP 18; TEMP 36.6
[2023-06-04] MEDS: Ibuprofen 600 MG TAB PO ×2 (01:09→07:46)
[2023-06-04] MEDS: Acetaminophen 325 MG TAB 650 MG PO ×3 (01:09→13:15)
[2023-06-04] MEDS: oxyCODONE 5 MG TAB PO ×2 (07:46→13:31)
[2023-06-04] MEDS: Docusate Sodium 100 MG CAP PO (07:47)
[2023-06-04 08:10] VITALS: BP 154/96; PULSE 74; RESP 17; TEMP 36.6; O2SAT 99
[2023-06-04] MEDS: Labetalol 100 MG TAB 200 MG PO (08:46)
--- NOTE | 2023-06-04 12:43 | W.PM.OBPNV1 ---
Date of service: 06/04/23 Time of Service: 10:00 Assessment and Plan Assessment and plan (1) History of delivery: Assessment and plan: Doing well POD#2. Routine care. Will d/c home today. Discussed restrictions. Scripts sent. Will return Saturday for dressing removal - discussed care. Plans condoms for contraception when ready for now. Considering a second but would not want to wait until she's >40yrs. (2) Chronic hypertension affecting : Status: Acute Assessment and plan: Will continue labetalol 200mg BID. Will return for BP check on Saturday. Subjective Subjective Narrative: Pt is feeling well overall. Ambulating without significant difficulty. Took 1 percocet this am but otherwise doing well with just tylenol and ibuprofen. Tolerating oral diet. Baby is breast feeding with some formula supplementation. Exam Physical Exam Vital signs: Temp Pulse Resp BP Pulse Ox 97.9 F 74 17 154/96 H 99 06/04/23 08:10 06/04/23 08:10 06/04/23 08:10 06/04/23 08:10 06/04/23 08:10 Vital Signs Reviewed: Yes Constitutional Constitutional: no acute distress and cooperative Detailed HEENT Exam Head: Present normocephalic and atraumatic Respiratory Exam Respiratory Exam: Normal Abdominal Exam Abdomen: Tender (mildly) Comments: Incision clean, dry, intact Fundal Exam Fundus: Below Umbilicus and Firm Extremities Exam Extremity Exam: Edema (1+) Detailed Neurological Exam Neurological: Present alert, oriented X3 and CN II-XII intact Results Hemoglobin/Hematocrit: Hgb 10.7 g/dL (11.2-15.7) L D 06/03/23 06:44 Hct 30.8 % (36.0-46.0) L 06/03/23 06:44 Abnormal Lab Findings: Abnormal Labs 06/01/23 06/03/23 09:25 06:44 WBC 13.22 H RBC 3.49 L Hgb 10.7 L D Hct 30.8 L MPV 11.3 H 11.3 H Absolute Neutrophils 10.66 H Sodium 135 L 127 L Chloride 97 L Alkaline Phosphatase 158 H 120 H Total Protein 5.9 L Albumin 2.6 L 2.2 L
[2023-06-04 12:45] VITALS: BP 136/76; PULSE 77; RESP 17; TEMP 36.6; O2SAT 99
--- NOTE | 2023-06-06 11:06 | W.PM.OBDISCH ---
Date of service: 06/04/23 Time of Service: 12:00 DS: Diagnosis Discharge Diagnosis (1) History of delivery: (2) Chronic hypertension affecting : Status: Acute Discharge Plan Disposition Patient Disposition: Home Condition: Good Discharge Details Reason For Visit: CHTN Admit Date/Time: 05/31/23 15:24 Admit Provider: Cathy Dominguez Attending Provider: Cathy Dominguez Primary Care Provider: Lisa Arellano Hospital Course Hospital Course: Pt was admitted at 41.1wks for repeat induction of labor for CHTN. She previously spent 4 days undergoing induction. During this admission she received cytotec x4 doses with a subsequently ripened cervix. She then started pitocin x21hrs and the baby did not descend into the pelvis so she underwent PCS for failed induction. She had an uncomplicated post-op course and was discharged home on HD#2. Home Meds and New Rx's Prescriptions: New acetaminophen 325 mg Tablet 650 mg PO Q4H PRN PRNQty: 0 0RF docusate sodium [Colace] 100 mg Capsule 100 mg PO BID PRN PRNQty: 60 0RF ibuprofen 600 mg Tablet 600 mg PO Q6H PRN PRNQty: 60 0RF oxycodone 5 mg Tablet 5 mg PO Q6H PRN PRNQty: 5 0RF Continued Classic 28 mg iron- 800 mcg tablet 1 tab PO DAILY labetalol 200 mg tablet 200 mg PO BID Qty: 60 0RF Discontinued aspirin 81 mg tablet,delayed release (DR/EC) 81 mg PO DAILY Qty: 90 4RF Rx Instructions: 1 tab daily and 2 tabs every other day Discharge Instructions Stand Alone Forms: BC Instructions, BC Discharge Instruc Activity:: Activity as Tolerated Equipment/Supplies:: No Equipment Needed Diet:: As Tolerated Discharge Orders Discharge Orders: Discharge Order (Routine); Ordered 06/04/23 Ordered By: Cathy Dominguez Discharge Data Discharge Date/Time-TO BE ENTERED AT DEPARTURE: 06/04/23 15:00 OB:DS Summary Contraception Discussed Contraception Discussed: Yes Contraceptive Plan: Foam/Condoms, [place] Gender-Baby A: Male weight: 8 lb 6.923 oz Status at Discharge Functional status at discharge: independent ambulation Overall status at discharge: patient is back to baseline Mental Status: mental status grossly normal Speech and Movement: speech and movement normal Mood: congruent mood Affect: normal affect Quality:SDOH Health Related Social Needs: Health related social needs inadequate housing Exam Physical Exam Vital signs: Temp Pulse Resp BP Pulse Ox 97.9 F 77 17 136/76 99 06/04/23 12:45 06/04/23 12:45 06/04/23 12:45 06/04/23 12:45 06/04/23 12:45 PFSH All Active Problems (Updated 06/05/23 @ 00:06 by KEYANA PLASCENCIA) Chronic hypertension affecting (Acute) Medical History (Updated 06/05/23 @ 00:06 by KEYANA PLASCENCIA) delivery delivered Former smoker Family history of hypertension Surgical History (Updated 06/04/23 @ 12:48 by Cathy Dominguez MD) History of delivery 06/02/23 - PCS, failure to descend/failed induction Social History (Updated 11/05/22 @ 14:59 by Kristen Ang NP) Smoking/Tobacco Use Status: Former Tobacco Use Smoking risk assessment performed?: Yes Alcohol Intake: never Drug use: Never Substance use type: does not use Housing: apartment Do you feel safe at home: Yes Do you feel safe in your relationship?: Yes Female Reproductive History Menstrual control method: none History History 1 Para 0 Hx # Term Pregnancies 0 Multiple births 0 Hx # Pregnancies 0 Ectopic pregnancies 0 AB induced 0 Hx Number of Living Children 0 AB spontaneous 0 DS: Data Vitals/I&O Vitals and I&O: Vital Signs Temperature 97.9 F 06/04/23 12:45 Temperature 98.1 F 05/31/23 17:11 Temperature Source Oral 06/04/23 12:45 Pulse 77 06/04/23 12:45 Pulse Rhythm Regular 06/04/23 08:16 Respiratory Rate 17 06/04/23 12:45 Blood Pressure 136/76 06/04/23 12:45 Blood Pressure Mean 96 06/04/23 12:45 Pulse Oximetry 99 06/04/23 12:45 Oxygen Delivery Method Room Air 05/31/23 16:12 Oxygen Flow Rate 0 05/31/23 16:12 Pain Level 5 06/04/23 08:10 Comment pt just took hot shower. 06/02/23 08:29
== END 2023-06-04 15:00 | disposition home or self-care (01) | DRG 788 ==
LOC: BCD 15:30 → OBS 15:30
PROVIDERS: Admitting Provider Obstetrics & Gynecology; Visit Provider Obstetrics & Gynecology
PROC: 10D00Z1 Extraction of Products of Conception, Low, Open Approach (ICD-10-PCS; CPT 59514; principal; 2023-06-02 08:45)
DX: O10.02 Pre-existing essential hypertension complicating childbirth (principal); O48.0 Post-term pregnancy; Z37.0 Single live birth; Z3A.41 41 weeks gestation of pregnancy; O61.0 Failed medical induction of labor
CPT/HCPCS: 59514; 36415; 80053; 85027; 86850; 86900; 86901; 59200; 85025; 88307; J0456; J0665; J0690; J1885; J2274; J2371; J2405; J3010; J3490